=== PATIENT | female | born 1955 | race Caucasian/White ===

== ENCOUNTER → 2016-08-27 | Emergency (ER) | payer BC ==
[2016-08-27] VITALS (9 sets, daily range): BP systolic 136–166; BP diastolic 74–98; PULSE 75–107; RESP 14–20; TEMP 97.7–98.7; O2SAT 94–100
[~2016-08-27] VITALS: Ht 165.1 cm; Wt 105.0 kg
[~2016-08-27] MED LIST: *MEPERIDINE 25 MG INJ VIAL PERIprocedural Use ONLY ONE; ACET-703 PO; ACETAMINOPHEN/HYDROcodone 325 MG/5 MG TAB PO ONE; ASPI1TAB69 PO; ASPI81TA82 PO; BELLADONNA ALKALOIDS/OPIUM 60 MG SUPP ONE; CALC1TAB12 PO; CHLORHEXIDINE GLUCONATE 0.12% 30 ML CUP ONE; CIPR-9 PO; CIPR500T2 PO; CRANCAP2 PO; CYAN25003 SL; FAMOTIDINE 20 MG/2 ML VIAL ONE; HYDR-3533 PO; IOHEXOL 350 MG/ML 100 ML BTL (for RAD DIAG) OTHER ONE; KETO0.5S2 EACH EYE; KETO0.5S2 LEFT EYE; KETO0.5S2 RIGHT EYE; KETOROLAC TROMETHAMINE 30 MG/ML (IVP) VIAL IVP ONE; LEVA500T PO; METH750T2 PO; MIDAZOLAM HCL 2 MG/2 ML VIAL ONE; MORPHINE SULFATE 4 MG/ML INJ IV PUSH ONE; NAPR500 PO; OMEP20CA5 PO; OMEP20TA PO; OMNI1SUS LEFT EYE; ONDANSETRON HCL 4 MG/2 ML VIAL IV ONE; ONDANSETRON HCL 4 MG/2 ML VIAL IVP ONE; OXYB5TAB10 PO; PHEN0.4T PO; PROMETHAZINE INJ 25 MG/ML VIAL ONE; PROPOFOL 200 MG/20 ML AMP IV ONE; SODIUM CHLOR 0.9% 1000 ML INJ 1,000 ML IV SCH; SODIUM CHLORIDE 0.9% FLUSH 10 ML FLUSH IV FLUSH PRN; SODIUM CHLORIDE 0.9% INJ 100 ML ONE; SODIUM CHLORIDE 0.9% INJ 50 ML ONE; TRAM50TA PO; VITA10002 PO; ZOFR4TAB PO; ZOFR4TAB3 SL; [UNRECOGNIZED DRUG - REMARK] PO; ceFAZolin INJ 1,000 MG VIAL ONE
[2016-08-27 08:04] LABS: AUTOMATED NEUTROPHIL # 8.3 TH/MM3 (1.8-7.7); BASOPHIL # 0.1 TH/MM3 (0-0.2); BASOPHIL % 0.7 % (0.0-2.0); EOSINOPHIL # 0.2 TH/MM3 (0-0.4); EOSINOPHIL % 1.4 % (0.0-4.0); HEMATOCRIT 45.2 % (35.0-46.0); HEMO FLAGS DIFF FINAL; LYMPH % 14.9 % (9.0-44.0); LYMPHOCYTE # 1.6 TH/MM3 (1.0-4.8); MEAN CELL VOLUME 85.1 FL (80.0-100.0); MEAN CORPUSCULAR HEMOGLOBIN 28.1 PG (27.0-34.0); MEAN CORPUSCULAR HGB CONC 33.1 % (32.0-36.0); MONO % 5.9 % (0.0-8.0); NEUT % 77.1 % (16.0-70.0); PLATELET COUNT 251 TH/MM3 (150-450); RED BLOOD COUNT 5.31 MIL/MM3 (4.00-5.30); RED CELL DISTRIBUTION WIDTH 12.9 % (11.6-17.2); WHITE BLOOD COUNT 10.8 TH/MM3 (4.0-11.0)
[2016-08-27 08:13] LABS: CHLORIDE 109 MEQ/L (98-107); POTASSIUM 3.9 MEQ/L (3.5-5.1); SODIUM (NA) 144 MEQ/L (136-145)
[2016-08-27 08:17] LABS: ANION GAP 11 MEQ/L (5-15); BLOOD UREA NITROGEN 18 MG/DL (7-18)
[2016-08-27 08:20] LABS: ALT (GPT) 42 U/L (10-53); AST (GOT) 27 U/L (15-37); GLOMERULAR FILTRATION RATE 50 ML/MIN (>89)
[2016-08-27 08:22] LABS: TOTAL BILIRUBIN ADULT 0.7 MG/DL (0.2-1.0)
[2016-08-27 08:23] LABS: ALKALINE PHOSPHATASE 121 U/L (45-117)
--- NOTE | 2016-08-27 08:33 | PD ---
HPI Chief Complaint: Flank/Kidney Pain Time Seen by Provider: 07:21 Travel History International Travel<30 days: No Contact w/Intl Traveler<30days: No Traveled to known affect area: No History of Present Illness HPI 60 year-old woman presents emergency department complaining of left flank pain and vomiting starting today. She's had urgency and frequency for the past 5 days or so. This morning about 3 inches or develop severe left flank pain associated with vomiting. She has a remote history of kidney stones in the past and states it feels somewhat similar. She's had chills but no definite fevers. She otherwise had been feeling generally well and healthy before the onset of these symptoms. Review of systems is positive for some left leg pain that she's been having. She had an ultrasound done yesterday that was negative for DVT. Think she may have a Mir cyst. She also has chronic diarrhea. No other recent illness or injury. Abdominal surgical history includes cholecystectomy, vaginal hysterectomy, bilateral tubal ligation, and bladder surgery. History Past Medical History Narrative Medical Hyperlipidemia Hiatal hernia Psoriasis GERD Esophageal spasms Menopausal: Yes Social History Alcohol Use: No Tobacco Use: No (FORMER) Allergies-Medications (Allergen,Severity, Reaction): Coded Allergies: Sulfa (Verified Allergy, Severe, HIVES, 08/27/16) Reported Meds & Prescriptions Reported Meds & Active Scripts Active Naprosyn (Naproxen) 500 Mg Tab 500 Mg PO BID PRN Zofran Odt (Ondansetron Odt) 4 Mg Tab 4 Mg SL Q8HR PRN May substitute non-ODT form. Lortab (Hydrocodone-Acetaminophen) 5-325 Mg Tab 1-2 Tab PO Q6H PRN Reported Vitamin B-12 (Cyanocobalamin) 2,500 Mcg Subl 2,500 Mcg SL DAILY Omnipred Opth Drops (Prednisolone Acetate Opth Drops) 1% Susp 1 Drop EACH EYE BID Ketorolac Opth Drops 0.5% Drops 1 Drop EACH EYE DAILY Calcium 500 +D (Calcium Carbonate-Cholecalciferol) 500-400 Mg-Unit Tab 1 Tab PO DAILY Cranberry Urinary Comfort (Vitamins C & E) 1 Cap 2 Cap PO DAILY Omeprazole 20 Mg Tab 20 Mg PO DAILY Ciprofloxacin (Ciprofloxacin HCl) 500 Mg Tab 500 Mg PO BID Aspirin 81 Mg Tabdr 81 Mg PO DAILY Review of Systems Except as stated in HPI: all other systems reviewed are Neg Physical Exam Narrative GENERAL: 61 year-old woman, appears uncomfortable, nontoxic. SKIN: Warm and dry. NECK: Trachea midline. No JVD. CARDIOVASCULAR: Regular rate and rhythm. No murmur appreciated. RESPIRATORY: No accessory muscle use. Clear to auscultation. Breath sounds equal bilaterally. GASTROINTESTINAL: Abdomen is obese and soft. Moderate left-sided tenderness palpation. MUSCULOSKELETAL: No obvious deformities. No edema. NEUROLOGICAL: Awake and alert. No obvious cranial nerve deficits. Motor grossly within normal limits. Normal speech. PSYCHIATRIC: Appropriate mood and affect; insight and judgment normal. Data Data Last Documented VS Vital Signs Date Time Temp Pulse Resp B/P Pulse Ox O2 Delivery O2 Flow Rate FiO2 08/27/16 10:45 97 16 153/96 94 Room Air 08/27/16 08:15 2 08/27/16 06:21 98.7 Orders Complete Blood Count With Diff (08/27/16 07:31) Comprehensive Metabolic Panel (08/27/16 07:31) Lipase (08/27/16 07:31) Urinalysis - C+S If Indicated (08/27/16 07:31) Ct Abd/Pel W/O Iv Contrast (08/27/16 07:31) Iv Access Insert/Monitor (08/27/16 07:31) Ecg Monitoring (08/27/16 07:31) Oximetry (08/27/16 07:31) Morphine Inj (Morphine Inj) (08/27/16 07:45) Ondansetron Inj (Zofran Inj) (08/27/16 07:45) Sodium Chlor 0.9% 1000 Ml Inj (Ns 1000 M (08/27/16 07:31) Sodium Chloride 0.9% Flush (Ns Flush) (08/27/16 07:45) Ketorolac Inj (Toradol Inj) (08/27/16 07:45) Acetamin-Hydrocod 325-5 Mg ([place] 5-325 (08/27/16 08:30) Sodium Chlor 0.9% 1000 Ml Inj (Ns 1000 M (08/27/16 09:15) Morphine Inj (Morphine Inj) (08/27/16 09:45) Ondansetron Inj (Zofran Inj) (08/27/16 09:45) NPO (08/27/16 10:04) Diet Npo Except Meds (08/27/16 Lunch) ^ Consent (08/27/16 10:04) Electrocardiogram (08/27/16 11:34) Labs Laboratory Tests Test 08/27/16 07:20 White Blood Count 10.8 TH/MM3 Red Blood Count 5.31 MIL/MM3 Hemoglobin 14.9 GM/DL Hematocrit 45.2 % Mean Corpuscular Volume 85.1 FL Mean Corpuscular Hemoglobin 28.1 PG Mean Corpuscular Hemoglobin 33.1 % Concent Red Cell Distribution Width 12.9 % Platelet Count 251 TH/MM3 Mean Platelet Volume 8.8 FL Neutrophils (%) (Auto) 77.1 % Lymphocytes (%) (Auto) 14.9 % Monocytes (%) (Auto) 5.9 % Eosinophils (%) (Auto) 1.4 % Basophils (%) (Auto) 0.7 % Neutrophils # (Auto) 8.3 TH/MM3 Lymphocytes # (Auto) 1.6 TH/MM3 Monocytes # (Auto) 0.6 TH/MM3 Eosinophils # (Auto) 0.2 TH/MM3 Basophils # (Auto) 0.1 TH/MM3 CBC Comment DIFF FINAL Differential Comment Sodium Level 144 MEQ/L Potassium Level 3.9 MEQ/L Chloride Level 109 MEQ/L Carbon Dioxide Level 24.0 MEQ/L Anion Gap 11 MEQ/L Blood Urea Nitrogen 18 MG/DL Creatinine 1.10 MG/DL Estimat Glomerular Filtration 50 ML/MIN Rate Random Glucose 143 MG/DL Calcium Level 9.4 MG/DL Total Bilirubin 0.7 MG/DL Aspartate Amino Transf 27 U/L (AST/SGOT) Alanine Aminotransferase 42 U/L (ALT/SGPT) Alkaline Phosphatase 121 U/L Total Protein 7.9 GM/DL Albumin 3.7 GM/DL Lipase 106 U/L [facility] Medical Decision Making Medical Screen Exam Complete: Yes Emergency Medical Condition: Yes Interpretation(s) LABS: CBC unremarkable. CMP generally unremarkable. Lipase normal. CT abdomen and pelvis: Acute obstructive uropathy in the left proximal ureter secondary to 9 mm calcified calculus at the left UPJ resulting in mild to moderate hydronephrosis. Tiny 3 mm calcified nonobstructing right renal calculus. Uncommon to colonic diverticulosis. Mild degenerative changes of the lumbar spine. Degenerative changes swelling the symphysis pubis. Mild hepatomegaly. Differential Diagnosis Renal lithiasis, UTI, pyelonephritis, colitis or diverticulitis, AAA, other Narrative Course Medical decision making INITIAL: Is a 60 year-old woman presents to the emergency department complaining of left flank pain with vomiting suggestive of renal lithiasis. We' ll check labs, UA, CT, pain control, reassess. FINAL: Patient with 9 mm proximal stone in the UPJ, needs stent. Spoke with Dr. Ennis, they will be able to do stent. [place]. Patient will be discharged from recovery. Diagnosis Primary Impression: Renal lithiasis Referrals: Pablito Ennis DO 1 week Additional Instructions: Take Naprosyn and Lortab as needed for pain. Use Zofran as needed for nausea or vomiting. Follow-up with Dr. Ennis as planned. Return to the emergency department for any new or worsening symptoms. Med/Other Pt SpecificInfo: Prescription(s) given Scripts Naproxen (Naprosyn)500 Mg [id number] Mg PO BID PRN (PAIN SCALE 1 TO 10) #20 TAB Prov:Cruz Shelby MD 08/27/16 Ondansetron Odt (Zofran Odt)4 Mg Tab4 Mg SL Q8HR PRN (Nausea/Vomiting) #15 TAB May substitute non-ODT form. Prov:Cruz Shelby MD 08/27/16 Hydrocodone-Acetaminophen (Lortab)5-325 Mg Tab1-2 Tab PO Q6H PRN (PAIN) #12 TAB Prov:Cruz Shelby MD 08/27/16 Disposition: 01 DISCHARGE HOME Condition: Stable Cruz Shelby MD Aug 27, 2016 08:33
--- NOTE | 2016-08-27 08:34 | RADHPO ---
EXAM DATE/TIME: 08/27/2016 07:51 [place] COMPARISON: No previous studies available for comparison. INDICATIONS : Left flank pain. Vomiting. ORAL CONTRAST: No oral contrast ingested. RADIATION DOSE: 24.78 CTDIvol (mGy) MEDICAL HISTORY : Renal calculi. Gastroesophageal reflux disease. Cardiovascular disease SURGICAL HISTORY : Hysterectomy. Tubal ligation. ENCOUNTER: Initial ACUITY: 1 day PAIN SCALE: 8/10 LOCATION: Left flank TECHNIQUE: Volumetric scanning of the abdomen and pelvis was performed. Using automated exposure control and ad justment of the mA and/or kV according to patient size, radiation dose was kept as low as reasonably achievable to obtain optimal diagnostic quality images. FINDINGS: There is evidence of acute obstructive uropathy of the left proximal ureter secondary to a 9 mm calci fied calculus at the ureteropelvic junction resulting in mild to moderate hydronephrosis on the left. There is a t iny 3 mm calcified non-obstructing right renal calculus. Circumaortic renal vein is noted. Uncomplicated col onic diverticulosis is noted. No acute diverticulitis is noted. Evaluation of the solid organs of the ab domen is limited by the lack of intravenous contrast. The appendix is normal. Mild hepatomegaly is noted. The patie nt is status post cholecystectomy. Minimal degenerative changes are noted throughout the lumbar spine. Arthritic changes are noted involving the symphysis pubis. The visualized lung bases are clear. CONCLUSION: 1. Acute obstructive uropathy in the left proximal ureter secondary to a 9 mm calcified calculus at the left ureteropelvic junction resulting in mild to moderate hydronephrosis on the left. 2. Tiny 3 mm calcified non-obstructing right renal calculus. 3. Uncomplicated colonic diverticulosis. 4. Mild degenerative changes throughout the lumbar spine. 5. Degenerative changes involving the symphysis pubis. 6. Mild hepatomegaly. Herminio Soto MD on August 27, 2016 at 8:14 Board Certified Radiologist. This report was verified electronically.
--- NOTE | 2016-08-27 14:24 | MB ---
cc: CT MAIER DATE OF CONSULTATION: 08/27/2016 REASON FOR CONSULTATION: Miss Michaels is a 58-year-old female who presented to the emergency room at [place] with left-sided flank pain associated with nausea and vomiting. A CT scan in emergency room demonstrated 9 mm left proximal ureteral stone with hydronephrosis. She states that she has had stones in the past. She denies any fever or chills. ALLERGIES SULFA MEDICATIONS: For medications please refer to the chart. PAST MEDICAL HISTORY: Medical history includes nephrolithiasis. PAST SURGICAL HISTORY: 1. Noted for right total knee replacement 2. hysterectomy 3. bladder surgery for urinary incontinence. 4. Hyperlipidemia. MEDICAL HISTORY 1. Please include hyperlipidemia. 2. Hiatal hernia 3. Gastroesophageal reflux disease 4. Psoriasis. FAMILY HISTORY: Family history is noted as history of stones. SOCIAL HISTORY Notes a former smoker. REVIEW OF SYSTEMS All systems are negative except per the HPI. PHYSICAL EXAMINATION: VITAL SIGNS: She is afebrile. Vital signs are stable. IN GENERAL: Well-developed, obese 60-year-old female no acute distress. HEAD, EYES, EARS, NOSE, AND THROAT: Normocephalic, atraumatic. Pupils equal round react to light. Extraocular is intact. NECK: The neck is supple. HEART: Regular rate and rhythm. LUNGS: Clear. ABDOMEN: Soft. Nontender. Nondistended. BACK: There is left costovertebral angle tenderness noted. EXTREMITIES: Show no cyanosis or edema. LABORATORY DATA White count 10.8, hemoglobin 14.9, hematocrit 45.2, platelet count 251, sodium 144, potassium 3.9, chloride 109, CO2 24, BUN of 18, creatinine 1.1, glucose 143. CT scan shows a 9 mm proximal UPJ stone with hydronephrosis. ASSESSMENT 61-year-old female with A 9 mm proximal left ureteral stone with hydronephrosis. PLAN: The plan will be for cystoscopy left double-J stent insertion followed by extracorporeal shock wave lithotripsy. Ct [place]/ /2:08 PM /2:13 PM
--- NOTE | 2016-08-28 16:23 | EKG ---
Date Performed: 08/27/2016 Time Performed: 11:46:30 PTAGE: 61 years EKG: Sinus rhythm Low QRS voltages in precordial leads Since previous tracing, no significant change noted Borderline ECG PREVIOUS TRACING : 04/27/2013 07.22 DOCTOR: Tony Smiley Interpretating Date/Time 08/28/2016 16:22:42
--- NOTE | 2016-08-31 12:19 | MP ---
cc: CT [facility] DATE OF SURGERY 08/27/2016 PREOPERATIVE DIAGNOSIS 9-mm left UPJ stone with hydronephrosis. POSTOPERATIVE DIAGNOSIS 9-mm left UPJ stone with hydronephrosis. PROCEDURE Cystoscopy, left retrograde study, left double-J stent insertion. SURGEON MD Raymon ANESTHESIA General LMA. FLUIDS 500 cc crystalloid. ESTIMATED BLOOD LOSS No blood loss. COMPLICATIONS No complications. DRAINS A 6-Frenchm, 22-cm left double-J stent. DISPOSITION She tolerated the procedure well and was transferred to Recovery in stable condition. INDICATIONS Sharyn Michaels is a 61-year-old female who presented with nausea, vomiting and abdominal pain on the left side with flank pain over the last [address] scan in the emergency room at [facility] demonstrated a 9-mm left proximal ureteral stone. Hydronephrosis was also noted. Decision was made to bring the patient to the operating room to undergo cystoscopy with left double-J stent insertion. The risks and benefits were discussed preoperatively and she was willing to proceed. PROCEDURE The patient was brought to the operating room, identified by myself as Sharyn Michaels. She was placed in dorsal lithotomy position, prepped and draped in the sterile fashion, received preprocedure antibiotics, and general LMA anesthesia was administered. A 22-Cymraes cystoscope was inserted into the bladder. Elder cystoscopy did not reveal any abnormalities. A 5-Cymraes open-ended catheter was then inserted into the left ureteral orifice and retrograde study was performed showing good filling of the ureter up to the UPJ where the stone was identified and was pushed back into the kidney. An 0.035 Sensor wire was then passed through the open-ended catheter leaving the wire in place and removing the catheter. A 6-Cymraes 22-cm left double-J stent was inserted over the wire with a good curl in the kidney and a good curl in the bladder. The bladder was evacuated and she was awoken and transferred to her room in stable condition. The plan will be for her to make a phone call to the office on Tuesday and schedule left extracorporeal shock wave lithotripsy in the near future. Ct TOSCANO/ANNALEE /2:04 PM /12:13 PM
== END | disposition home or self-care (01) ==
LOC: EDSEX → PHED 06:17
DX: N13.2 Hydronephrosis with renal and ureteral calculous obstruction (principal); R94.31 Abnormal electrocardiogram [ECG] [EKG]; Z88.2 Allergy status to sulfonamides
CPT/HCPCS: 00910; 52332; 74176; 76000; 80053; 83690; 85025; 93005; 96361; 96374; 96375; 96376; 99284; C1769; C2617; J0690; J1885; J2175; J2250; J2270; J2405; J2550; J3010; J7030; Q9967

== ENCOUNTER 2016-08-28 15:27 | Observation (INO) | payer BC ==
[~2016-08-28] VITALS: Ht 165.1 cm; Wt 106.4 kg
[2016-08-28] VITALS (8 sets, daily range): BP systolic 119–165; BP diastolic 70–101; PULSE 87–121; RESP 16–20; TEMP 98.7–100.2; O2SAT 91–95
[~2016-08-28 15:27] MED LIST changes: -*MEPERIDINE 25 MG INJ VIAL PERIprocedural Use ONLY ONE; -ACET-703 PO; -ACETAMINOPHEN/HYDROcodone 325 MG/5 MG TAB PO ONE; -ASPI81TA82 PO; -BELLADONNA ALKALOIDS/OPIUM 60 MG SUPP ONE; -CHLORHEXIDINE GLUCONATE 0.12% 30 ML CUP ONE; -CIPR-9 PO; -FAMOTIDINE 20 MG/2 ML VIAL ONE; -IOHEXOL 350 MG/ML 100 ML BTL (for RAD DIAG) OTHER ONE; -KETO0.5S2 LEFT EYE; -KETO0.5S2 RIGHT EYE; -KETOROLAC TROMETHAMINE 30 MG/ML (IVP) VIAL IVP ONE; -METH750T2 PO; -MIDAZOLAM HCL 2 MG/2 ML VIAL ONE; -MORPHINE SULFATE 4 MG/ML INJ IV PUSH ONE; -OMEP20CA5 PO; -ONDANSETRON HCL 4 MG/2 ML VIAL IV ONE; -ONDANSETRON HCL 4 MG/2 ML VIAL IVP ONE; -OXYB5TAB10 PO; -PROMETHAZINE INJ 25 MG/ML VIAL ONE; -PROPOFOL 200 MG/20 ML AMP IV ONE; -SODIUM CHLOR 0.9% 1000 ML INJ 1,000 ML IV SCH; -SODIUM CHLORIDE 0.9% FLUSH 10 ML FLUSH IV FLUSH PRN; -SODIUM CHLORIDE 0.9% INJ 100 ML ONE; -SODIUM CHLORIDE 0.9% INJ 50 ML ONE; -TRAM50TA PO; -VITA10002 PO; -[UNRECOGNIZED DRUG - REMARK] PO; -ceFAZolin INJ 1,000 MG VIAL ONE
[2016-08-28] MEDS ORDERED: SODIUM CHLOR 0.9% 1000 ML INJ 1,000 ML IV ONE (16:23)
--- NOTE | 2016-08-28 16:29 | PD ---
HPI Chief Complaint: Headache Time Seen by Provider: 16:23 Travel History International Travel<30 days: No Contact w/Intl Traveler<30days: No Traveled to known affect area: No History of Present Illness HPI 61-year-old female with diagnosis of 9 mm kidney stone yesterday status post stenting done by urology, released with Levaquin, Pyridium, and pain medications , back to the ER today because of headaches that started yesterday, currently an 8 out of 10 with photophobia. She states that she has history of headaches and migraine headaches but states is usually not this bad. She has been nauseous but denies any vomiting, fevers, or other symptoms. Modifying Factors: None Associated Signs & Symptoms: Headaches, nausea Risk Factors: Previous history of migraine headaches, kidney stone and stenting done yesterday PFSH Past Medical History Arthritis: Yes Cancer: No Cardiovascular Problems: Yes (tachycardia) High Cholesterol: Yes Diabetes: No Endocrine: No Gastrointestinal Disorders: Yes (reflux esophageal spasms) GERD: Yes Genitourinary: No Hepatitis: No Hiatal Hernia: No Hypertension: No Immune Disorder: Yes (psorisis) Implanted Vascular Access Dvce: No Kidney Stones: Yes Musculoskeletal: Yes (bursitis in both hips psoriatic arhritis ) Neurologic: No Psychiatric: No Respiratory: No Integumentary: Yes (PSORIASIS) Immunizations Current: Yes Thyroid Disease: No Ulcer: Yes ?: Not Menopausal: Yes Tubal Ligation: Yes Past Surgical History Abdominal Surgery: Yes (liver bx) AICD: No Eye Surgery: Yes (john, August,) Genitourinary Surgery: Yes (mmk, URETERAL STENT) Gynecologic Surgery: Yes (vaginal hysterectomy tubal) Hysterectomy: Yes Joint Replacement: Yes (right knee) Oral Surgery: Yes (full upper dental ext) Pacemaker: No Other Surgery: Yes (VULVAR BIOPSY-- LICHEN SCLEROSIS) Social History Alcohol Use: No Tobacco Use: No (FORMER) Substance Use: No Allergies-Medications (Allergen,Severity, Reaction): Coded Allergies: Sulfa (Verified Allergy, Severe, HIVES, 08/28/16) Reported Meds & Prescriptions Reported Meds & Active Scripts Active Naprosyn (Naproxen) 500 Mg Tab 500 Mg PO BID PRN Reported Zofran (Ondansetron HCl) 4 Mg Tab 4 Mg PO Q6HR PRN Pyridium (Phenazopyridine HCl) 100 Mg Tab 100 Mg PO BID PRN Lortab (Hydrocodone-Acetaminophen) 5-325 Mg Tab 1 Tab PO Q6H PRN Levaquin (Levofloxacin) 500 Mg Tab 500 Mg PO DAILY 5 Days Vitamin B-12 (Cyanocobalamin) 2,500 Mcg Subl 2,500 Mcg SL DAILY Omnipred Opth Drops (Prednisolone Acetate Opth Drops) 1% Susp 1 Drop EACH EYE BID Calcium 500 +D (Calcium Carbonate-Cholecalciferol) 500-400 Mg-Unit Tab 1 Tab PO DAILY Cranberry Urinary Comfort (Vitamins C & E) 1 Cap 2 Cap PO DAILY Omeprazole 20 Mg Tab 20 Mg PO DAILY Ciprofloxacin (Ciprofloxacin HCl) 500 Mg Tab 500 Mg PO BID Aspirin 81 Mg Tabdr 81 Mg PO DAILY Review of Systems Except as stated in HPI: all other systems reviewed are Neg Physical Exam Narrative GENERAL: Elderly white female patient currently in moderate distress. Awake and oriented 3. SKIN: Warm and dry. HEAD: Atraumatic. Normocephalic. EYES: Pupils equal and round. No scleral icterus. No injection or drainage. Pupils are equal, round, react to light bilaterally. ENT: No nasal bleeding or discharge. Mucous membranes pink and moist. NECK: Trachea midline. No JVD. CARDIOVASCULAR: Regular rate and rhythm. No murmur appreciated. RESPIRATORY: No accessory muscle use. Clear to auscultation. Breath sounds equal bilaterally. GASTROINTESTINAL: Abdomen soft, non-tender, nondistended. Hepatic and splenic margins not palpable. MUSCULOSKELETAL: No obvious deformities. No clubbing. No cyanosis. No edema. NEUROLOGICAL: Awake and alert. No obvious cranial nerve deficits. Motor grossly within normal limits. Normal speech. PSYCHIATRIC: Appropriate mood and affect; insight and judgment normal. Data Data Last Documented VS Vital Signs Date Time Temp Pulse Resp B/P Pulse Ox O2 Delivery O2 Flow Rate FiO2 08/28/16 17:36 111 20 165/82 91 08/28/16 16:57 Room Air 08/28/16 15:45 100.2 Orders Complete Blood Count With Diff (08/28/16 16:23) Comprehensive Metabolic Panel (08/28/16 16:23) Ecg Monitoring (08/28/16 16:23) Iv Access Insert/Monitor (08/28/16 16:23) Oximetry (08/28/16 16:23) Sodium Chloride 0.9% Flush (Ns Flush) (08/28/16 16:30) Ondansetron Inj (Zofran Inj) (08/28/16 16:30) Hydromorphone Pf Inj (Dilaudid Pf Inj) (08/28/16 16:30) Sodium Chlor 0.9% 1000 Ml Inj (Ns 1000 M (08/28/16 16:23) Urinalysis - C+S If Indicated (08/28/16 16:23) Urine Culture (08/28/16 16:30) Blood Culture (08/28/16 17:32) Lactic Acid Sepsis Protocol (08/28/16 17:32) Piperacil-Tazo 4.5 Gm Premix (Zosyn 4.5 (08/28/16 17:32) Labs Laboratory Tests Test 08/28/16 16:30 White Blood Count 7.3 TH/MM3 Red Blood Count 4.72 MIL/MM3 Hemoglobin 13.3 GM/DL Hematocrit 40.3 % Mean Corpuscular Volume 85.4 FL Mean Corpuscular Hemoglobin 28.1 PG Mean Corpuscular Hemoglobin 33.0 % Concent Red Cell Distribution Width 13.1 % Platelet Count 209 TH/MM3 Mean Platelet Volume 8.0 FL Neutrophils (%) (Auto) 77.2 % Lymphocytes (%) (Auto) 11.8 % Monocytes (%) (Auto) 7.7 % Eosinophils (%) (Auto) 1.5 % Basophils (%) (Auto) 1.8 % Neutrophils # (Auto) 5.6 TH/MM3 Lymphocytes # (Auto) 0.9 TH/MM3 Monocytes # (Auto) 0.6 TH/MM3 Eosinophils # (Auto) 0.1 TH/MM3 Basophils # (Auto) 0.1 TH/MM3 CBC Comment DIFF FINAL Differential Comment Urine Collection Type CLEAN CATCH Urine Color YELLOW Urine Turbidity SLIGHT Urine pH 6.0 Urine Specific [place] 1.007 Urine Protein 100 mg/dL Urine Glucose (UA) NEG mg/dL Urine Ketones NEG mg/dL Urine Occult Blood LARGE Urine Nitrite POS Urine Bilirubin NEG Urine Leukocyte Esterase MOD Urine RBC INNUM /hpf Urine WBC 25-49 /hpf Urine Squamous Epithelial 0-5 /hpf Cells Microscopic Urinalysis Comment CULTURE INDICATED Urine Collection Time 16:30 Sodium Level 140 MEQ/L Potassium Level 3.9 MEQ/L Chloride Level 107 MEQ/L Carbon Dioxide Level 25.4 MEQ/L Anion Gap 8 MEQ/L Blood Urea Nitrogen 9 MG/DL Creatinine 0.94 MG/DL Estimat Glomerular Filtration 60 ML/MIN Rate Random Glucose 108 MG/DL Calcium Level 8.7 MG/DL Total Bilirubin 1.0 MG/DL Aspartate Amino Transf 58 U/L (AST/SGOT) Alanine Aminotransferase 54 U/L (ALT/SGPT) Alkaline Phosphatase 121 U/L Total Protein 7.2 GM/DL Albumin 3.2 GM/DL MDM Medical Decision Making Medical Screen Exam Complete: Yes Emergency Medical Condition: Yes Medical Record Reviewed: Yes Interpretation(s) Laboratory Tests Test 08/28/16 16:30 Neutrophils (%) (Auto) 77.2 % (16.0-70.0) Lymphocytes # (Auto) 0.9 TH/MM3 (1.0-4.8) Urine Protein 100 mg/dL (NEG-TRACE) Urine Occult Blood LARGE (NEG) Urine Nitrite POS (NEG) Urine Leukocyte Esterase MOD (NEG) Urine RBC INNUM /hpf (0-3) Urine WBC 25-49 /hpf (0-5) Estimat Glomerular Filtration 60 ML/MIN (>89) Rate Random Glucose 108 MG/DL (74-106) Aspartate Amino Transf 58 U/L (15-37) (AST/SGOT) Alanine Aminotransferase 54 U/L (10-53) (ALT/SGPT) Alkaline Phosphatase 121 U/L (45-117) Albumin 3.2 GM/DL (3.4-5.0) Differential Diagnosis Headachemigraine headaches versus sepsis versus dehydration versus metabolic issues Narrative Course She is tachycardic and has low-grade fever. IV fluids and pain medication nausea medication was given to her in the ER. Lab work shows significant UTI which I suspect may be causing her headache. IV antibiotics were initiated in the ER. At this point, patient has been on Levaquin for several days as well as Cipro which does not appear to be helping with a UTI. My plan would be to admit the patient as an observation for resistant UTI, sepsis. Case is discussed with Dr. Rico for admission. Sepsis Criteria SIRS Criteria (2 or more): Heart rate over 90 Sepsis Criteria (SIRS+source): Infect source susp/known Diagnosis Primary Impression: UTI (urinary tract infection) Additional Impression: Sepsis Admitting Information Admitting Physician Requests: Admit Radha Bay MD Aug 28, 2016 16:29
[2016-08-28] MEDS ORDERED: HYDROmorphone HCL PF 1 MG/ML VIAL IVS ONE (16:30)
[2016-08-28] MEDS ORDERED: ONDANSETRON HCL 4 MG/2 ML VIAL IVP ONE (16:30)
[2016-08-28] MEDS ORDERED: SODIUM CHLORIDE 0.9% FLUSH 10 ML FLUSH IVF PRN (16:30)
[2016-08-28 16:40] LABS: BLOOD, URINE LARGE (NEG); GLUCOSE,URINE NEG (NEG); KETONE, URINE NEG (NEG)
[2016-08-28 16:41] LABS: AUTOMATED NEUTROPHIL # 5.6 TH/MM3 (1.8-7.7); BASOPHIL # 0.1 TH/MM3 (0-0.2); BASOPHIL % 1.8 % (0.0-2.0); EOSINOPHIL # 0.1 TH/MM3 (0-0.4); EOSINOPHIL % 1.5 % (0.0-4.0); HEMATOCRIT 40.3 % (35.0-46.0); HEMO FLAGS DIFF FINAL; LYMPH % 11.8 % (9.0-44.0); LYMPHOCYTE # 0.9 TH/MM3 (1.0-4.8); MEAN CELL VOLUME 85.4 FL (80.0-100.0); MEAN CORPUSCULAR HEMOGLOBIN 28.1 PG (27.0-34.0); MONO % 7.7 % (0.0-8.0); NEUT % 77.2 % (16.0-70.0); PLATELET COUNT 209 TH/MM3 (150-450); RED BLOOD COUNT 4.72 MIL/MM3 (4.00-5.30); RED CELL DISTRIBUTION WIDTH 13.1 % (11.6-17.2); WHITE BLOOD COUNT 7.3 TH/MM3 (4.0-11.0)
[2016-08-28 16:43] LABS: NITRITE,URINE POS (NEG)
[2016-08-28 16:44] LABS: METHOD OF COLLECTION CLEAN CATCH; URINE COLOR YELLOW (YELLW/STRAW)
[2016-08-28 16:45] LABS: COMMENT (UR) CULTURE INDICATED; CULTURE IF INDICATED CULTURE INDICATED; RBC, URINE INNUM /hpf (0-3); SQUAMOUS EPITHELIAL CELL URINE 0-5 /hpf (0-5)
[2016-08-28 16:54] LABS: CHLORIDE 107 MEQ/L (98-107); POTASSIUM 3.9 MEQ/L (3.5-5.1); SODIUM (NA) 140 MEQ/L (136-145)
[2016-08-28 16:58] LABS: ANION GAP 8 MEQ/L (5-15); BICARBONATE 25.4 MEQ/L (21.0-32.0); BLOOD UREA NITROGEN 9 MG/DL (7-18)
[2016-08-28 17:01] LABS: ALT (GPT) 54 U/L (10-53)
[2016-08-28 17:05] LABS: ALKALINE PHOSPHATASE 121 U/L (45-117); AST (GOT) 58 U/L (15-37); GLOMERULAR FILTRATION RATE 60 ML/MIN (>89)
[2016-08-28] MEDS ORDERED: PIPERACIL-TAZO 4.5 GM PREMIX 100 ML IV STA (17:32)
[2016-08-28] MEDS ORDERED: ACETAMINOPHEN/HYDROcodone 325 MG/5 MG TAB PO PRN (17:45)
[2016-08-28] MEDS ORDERED: ACETAMINOPHEN/HYDROcodone 325 MG/7.5 MG TAB PO PRN (17:45)
[2016-08-28] MEDS ORDERED: SODIUM CHLORIDE 0.9% FLUSH 10 ML FLUSH IV FLUSH PRN (17:45)
[2016-08-28] MEDS ORDERED: ACETAMINOPHEN 325 MG TAB PO PRN (17:45)
[2016-08-28] MEDS ORDERED: IBUPROFEN 400 MG TAB PO PRN (17:45)
[2016-08-28] MEDS ORDERED: MAGNESIUM HYDROXIDE SUSP 30 ML CUP PO PRN (17:45)
[2016-08-28] MEDS ORDERED: ONDANSETRON HCL 4 MG/2 ML VIAL IVP PRN (17:45)
--- NOTE | 2016-08-28 18:40 | HHI.HP ---
HPI Service [facility] Hospitalists Primary Care Physician Nayely Chan MD Admission Diagnosis renal colic/UTI/sepsis/failed outpatient therapy Diagnoses: Chief Complaint: Severe headache Nausea Travel History International Travel<30 Days: No Contact w/Intl Traveler <30 Da: No Traveled to Known Affected Are: No Sepsis Criteria SIRS Criteria (2 or more): Temp > 100.9 or < 96.8, Heart rate over 90 Sepsis Criteria (SIRS+source): Infect source susp/known Criteria Outcome: Meets sepsis criteria History of Present Illness This is a 61-year-old female with a past medical history significant for sinus tachycardia, migraines, esophageal spasms, dyslipidemia, GERD and psoriasis who presents to [facility] with complaints of severe headache. Patient was just seen yesterday for a 9 mm kidney stone and underwent a ureteral stenting by urology. Patient was discharged with Levaquin, Pyridium and pain medications. Patient states that around 4:00 this morning she took a pain pill and soon after she developed a 10/10 severe headache with associated nausea. She denies any vomiting. Patient states that her headache is worse with movement as well as a light period. She states that the headache would ease up and get better but then worsen again. Patient is a migraine sufferer but reports that they're not usually this severe. Patient denies any associated fever, chills, slurred speech, vision changes, weakness, numbness/tingling, chest pain, shortness of breath or abdominal pain. She's had some mild dizziness. She does report diarrhea but states this is chronic and unchanged. She admits to burning on urination as well as hematuria with passing of clots. In the ED, patient was found to have a significantly elevated blood pressure 142 /101 and be tachycardic. White count is normal that she does have a left shift. Temperature 100.2. UA revealed large blood, positive nitrites, moderate leukocytes and 25-49 white blood cells. Presently, she states the headache has improved and is a 1-2 out of 10. Review of Systems Except as stated in HPI: all other systems reviewed are Neg (10 point review of systems completed and all pertinent negative except as stated in history of present illness) Past Family Social History Past Medical History 9 mm kidney stone Esophageal spasm Sinus tachycardia GERD Migraines Psoriasis with a history of psoriatic arthritis bilateral hips Dyslipidemia Osteoarthritis Past Surgical History Status post ureteral stenting for 9 mm kidney stone Cataract surgery one eye 3 1/2 weeks ago and the other approximately one week ago. Hysterectomy Right total knee replacement Bladder repair surgery 2 Upper dental extraction Bilateral tubal ligation Cholecystectomy Reported Medications Naprosyn (Naproxen) 500 Mg Tab 500 Mg PO BID PRN Zofran (Ondansetron HCl) 4 Mg Tab 4 Mg PO Q6HR PRN Pyridium (Phenazopyridine HCl) 100 Mg Tab 100 Mg PO BID PRN Lortab (Hydrocodone-Acetaminophen) 5-325 Mg Tab 1 Tab PO Q6H PRN Levaquin (Levofloxacin) 500 Mg Tab 500 Mg PO DAILY 5 Days Vitamin B-12 (Cyanocobalamin) 2,500 Mcg Subl 2,500 Mcg SL DAILY Omnipred Opth Drops (Prednisolone Acetate Opth Drops) 1% Susp 1 Drop EACH EYE BID Calcium 500 +D (Calcium Carbonate-Cholecalciferol) 500-400 Mg-Unit Tab 1 Tab PO DAILY Cranberry Urinary Comfort (Vitamins C & E) 1 Cap 2 Cap PO DAILY Omeprazole 20 Mg Tab 20 Mg PO DAILY Ciprofloxacin (Ciprofloxacin HCl) 500 Mg Tab 500 Mg PO BID Aspirin 81 Mg Tabdr 81 Mg PO DAILY Allergies: Coded Allergies: Sulfa (Verified Allergy, Severe, HIVES, 08/28/16) Active Ordered Medications Current Medications Medications (Trade) Dose Ordered Sig/Jorje Route Start Time Stop Time Status Last Admin Sodium Chloride 2 ml 2 ml UNSCH PRN IVF 08/28/16 16:30 (NS 1000 ml Inj) 1,000 ml @ 100 mls/hr Q10H IV 08/28/16 17:45 UNV (NS Flush) 2 ml UNSCH PRN IV FLUSH 08/28/16 17:45 UNV (NS Flush) 2 ml BID IV FLUSH 08/28/16 21:00 UNV (Tylenol) 650 mg Q4H PRN PO 08/28/16 17:45 UNV (Zofran Inj) 4 mg Q6H PRN IVP 08/28/16 17:45 UNV (Milk Of Magnesia Liq) 30 ml Q12H PRN PO 08/28/16 17:45 UNV (Motrin) 400 mg Q6H PRN PO 08/28/16 17:45 UNV (Egnar 5-325 Mg) 1 tab Q4H PRN PO 08/28/16 17:45 UNV Acetaminophen/ Hydrocodone Bitart 1 tab 1 tab Q4H PRN PO 08/28/16 17:45 UNV (Zosyn 3.375 Gm Premix) 50 ml @ 100 mls/hr Q6H IV 08/28/16 17:45 UNV Family History Hypertension, mother and brothers CVA, mother Social History Patient has remote history of tobacco use having quit 06/07/04. Previously she smoked half pack for approximately 20 years. She reports rare alcohol consumption of one drink per year during holidays were special occasions. He denies any illicit drug use. She is and lives with her . 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 Physical Exam Vital Signs Vital Signs Date Time Temp Pulse Resp B/P Pulse Ox O2 Delivery O2 Flow Rate FiO2 08/28/16 17:36 111 20 165/82 91 08/28/16 17:01 16 08/28/16 16:57 93 Room Air 08/28/16 16:57 112 18 149/84 92 Room Air 08/28/16 15:45 100.2 121 17 142/101 94 Physical Exam GENERAL: This is a well-nourished, well-developed patient. A&Ox3. Appears uncomfortable with the lights off in her room and keeping her eyes closed. SKIN: No rashes, ecchymoses or lesions. Warm and dry. HEAD: Atraumatic. Normocephalic. No temporal or scalp tenderness. EYES: Pupils equal round and reactive. Extraocular motions intact. No scleral icterus. No injection or drainage. ENT: Nose without bleeding, purulent drainage or septal hematoma. Throat without erythema, tonsillar hypertrophy or exudate. Uvula midline. Airway patent. NECK: Trachea midline. No lymphadenopathy. Supple, nontender, no meningeal signs. CARDIOVASCULAR: Regular rate and rhythm without murmurs, gallops, or rubs. RESPIRATORY: Clear to auscultation. Breath sounds equal bilaterally. No wheezes , rales, or rhonchi. GASTROINTESTINAL: Abdomen soft, non-tender, nondistended. No hepato-splenomegaly , or palpable masses. No guarding. MUSCULOSKELETAL: Extremities without clubbing, cyanosis, or edema. No joint tenderness, effusion, or edema noted. No calf tenderness. NEUROLOGICAL: Awake and alert. Cranial nerves II through XII intact. Motor and sensory grossly within normal limits. Five out of 5 muscle strength in all muscle groups. Normal speech. Laboratory Laboratory Tests Test 08/28/16 16:30 White Blood Count 7.3 Red Blood Count 4.72 Hemoglobin 13.3 Hematocrit 40.3 Mean Corpuscular Volume 85.4 Mean Corpuscular Hemoglobin 28.1 Mean Corpuscular Hemoglobin 33.0 Concent Red Cell Distribution Width 13.1 Platelet Count 209 Mean Platelet Volume 8.0 Neutrophils (%) (Auto) 77.2 Lymphocytes (%) (Auto) 11.8 Monocytes (%) (Auto) 7.7 Eosinophils (%) (Auto) 1.5 Basophils (%) (Auto) 1.8 Neutrophils # (Auto) 5.6 Lymphocytes # (Auto) 0.9 Monocytes # (Auto) 0.6 Eosinophils # (Auto) 0.1 Basophils # (Auto) 0.1 CBC Comment DIFF FINAL Differential Comment Urine Collection Type CLEAN CATCH Urine Color YELLOW Urine Turbidity SLIGHT Urine pH 6.0 Urine Specific G[place]ais 1.007 Urine Protein 100 Urine Glucose (UA) NEG Urine Ketones NEG Urine Occult Blood LARGE Urine Nitrite POS Urine Bilirubin NEG Urine Leukocyte Esterase MOD Urine RBC INNUM Urine WBC 25-49 Urine Squamous Epithelial 0-5 Cells Microscopic Urinalysis Comment CULTURE INDICATED Urine Collection Time 16:30 Sodium Level 140 Potassium Level 3.9 Chloride Level 107 Carbon Dioxide Level 25.4 Anion Gap 8 Blood Urea Nitrogen 9 Creatinine 0.94 Estimat Glomerular Filtration 60 Rate Random Glucose 108 Calcium Level 8.7 Total Bilirubin 1.0 Aspartate Amino Transf 58 (AST/SGOT) Alanine Aminotransferase 54 (ALT/SGPT) Alkaline Phosphatase 121 Total Protein 7.2 Albumin 3.2 Date/Time Procedure Status Source Growth 08/28/16 17:45 Aerobic Blood Culture Received Blood Peripheral Pending 08/28/16 17:45 Anaerobic Blood Culture Received Blood Peripheral Pending 08/28/16 16:30 Urine Culture Received Urine Clean Catch Pending Result Diagram: 08/28/16 1630 08/28/16 1630 Assessment and Plan Assessment and Plan 61-year-old female with a past medical history significant for sinus tachycardia , migraines, esophageal spasms, dyslipidemia, GERD and psoriasis who presents to [facility] with complaints of severe headache, dysuria and hematuria. Sepsis secondary to urinary tract infection with tachycardia and fever - Admit to observation - Bundle in place - Lactic acid 0.6 - IV Zosyn - IV fluids - Monitor on telemetry - Follow up on urine and blood culture results - repeat CBC om am UTI in patient with a 9 mm kidney stone who underwent ureteral stenting yesterday - IV Zosyn - Follow up on urine culture results - Consult Urology Headache in a patient with a history of migraines - Improved since first presentation in the ED - Ibuprofen when necessary - By mouth pain medications when needed Mild transaminitis - AST 58, ALT 54, alkaline phosphatase 121 - Repeat CMP in a.m. Recent cataract surgery both eyes - Resume tapering dose of steroid eyedrops GERD - Resume home dose PPI DVT prophylaxis - SCD/SAY hose Discussed with Dr. Rico Attending Statement I was not present for examination. Patient was discussed with ER physician and Rachelle Ball PA-C. Agree with above plan. Continue antibiotics. Consult Urology. Rachelle Ball Aug 28, 2016 18:39 Felton Rico MD Aug 29, 2016 07:37
[2016-08-28] MEDS: SODIUM CHLOR 0.9% 1000 ML INJ 1,000 ML IV SCH (20:02)
[2016-08-28] MEDS: SODIUM CHLORIDE 0.9% FLUSH 10 ML FLUSH IV FLUSH SCH (21:00)
[2016-08-28] MEDS: PIPERACIL-TAZO 3.375 GM PREMIX 50 ML IV SCH (23:35)
[2016-08-28] MEDS: prednisoLONE ACETATE 1% OPHT SUSP 5 ML BTL EACH EYE SCH (23:41)
[2016-08-29] VITALS: BP 158/94; PULSE 87; RESP 18; TEMP 98.6; O2SAT 92
[2016-08-29] MEDS: ACETAMINOPHEN 325 MG TAB PO PRN ×3 (01:39→13:47)
[2016-08-29] MEDS ORDERED: ACETAMINOPHEN 325 MG TAB PO PRN (02:45)
[2016-08-29 04:09] VITALS: BP 134/88; PULSE 71; RESP 20; TEMP 98; O2SAT 98
[2016-08-29] MEDS: SODIUM CHLOR 0.9% 1000 ML INJ 1,000 ML IV SCH (05:54)
[2016-08-29] MEDS: PIPERACIL-TAZO 3.375 GM PREMIX 50 ML IV SCH ×2 (05:55→12:59)
[2016-08-29 07:23] LABS: AUTOMATED NEUTROPHIL # 3.5 TH/MM3 (1.8-7.7); BASOPHIL % 0.6 % (0.0-2.0); EOSINOPHIL # 0.3 TH/MM3 (0-0.4); EOSINOPHIL % 4.4 % (0.0-4.0); HEMATOCRIT 36.8 % (35.0-46.0); HEMO FLAGS DIFF FINAL; LYMPH % 24.2 % (9.0-44.0); LYMPHOCYTE # 1.5 TH/MM3 (1.0-4.8); MEAN CELL VOLUME 86.7 FL (80.0-100.0); MEAN CORPUSCULAR HEMOGLOBIN 28.9 PG (27.0-34.0); MEAN CORPUSCULAR HGB CONC 33.3 % (32.0-36.0); MONO % 12.3 % (0.0-8.0); NEUT % 58.5 % (16.0-70.0); PLATELET COUNT 166 TH/MM3 (150-450); RED BLOOD COUNT 4.24 MIL/MM3 (4.00-5.30)
[2016-08-29 07:30] LABS: CHLORIDE 106 MEQ/L (98-107); POTASSIUM 3.3 MEQ/L (3.5-5.1); SODIUM (NA) 142 MEQ/L (136-145)
[2016-08-29 07:34] LABS: ANION GAP 8 MEQ/L (5-15); BICARBONATE 28.1 MEQ/L (21.0-32.0); BLOOD UREA NITROGEN 9 MG/DL (7-18)
[2016-08-29 07:37] LABS: ALT (GPT) 62 U/L (10-53); AST (GOT) 60 U/L (15-37); GLOMERULAR FILTRATION RATE 72 ML/MIN (>89)
[2016-08-29 07:40] LABS: ALKALINE PHOSPHATASE 115 U/L (45-117)
[2016-08-29 08:00] VITALS: BP 141/84; PULSE 82; RESP 16; TEMP 97.8; O2SAT 94
[2016-08-29] MEDS ORDERED: NS + KCL 20 MEQ INJ 1,000 ML IV SCH (08:00)
[2016-08-29] MEDS ORDERED: POTASSIUM CHLORIDE 20 MEQ CONTROLLED RELEASE TAB PO ONE (08:00)
--- NOTE | 2016-08-29 08:09 | HHI.PR ---
Subjective Remarks Follow-up patient with sepsis secondary to urinary tract infection with history of benign millimeter kidney stone and recent ureteral stenting. Patient complains of 6 out of 10 headache today. She states this is worse than it was yesterday in the ED. States this is not her normal headache. She denies any vision changes, slurred speech or weakness. She also complains of intermittent nausea without vomiting. She denies any complaints of chest pain or abdominal pain. She denies any history of recent falls. Still with complaints of dysuria. Objective Vitals Vital Signs Date Time Temp Pulse Resp B/P Pulse Ox O2 Delivery O2 Flow Rate FiO2 08/29/16 04:09 98.0 71 20 134/88 98 08/29/16 00:00 98.6 87 18 158/94 92 08/28/16 21:00 99.3 91 16 161/97 93 08/28/16 20:59 99.3 91 16 161/97 93 08/28/16 20:54 87 08/28/16 19:10 18 Room Air 08/28/16 19:10 98.7 94 18 143/78 95 Room Air 08/28/16 18:29 103 20 119/70 92 08/28/16 17:36 111 20 165/82 91 08/28/16 17:01 16 08/28/16 16:57 93 Room Air 08/28/16 16:57 112 18 149/84 92 Room Air 08/28/16 15:45 100.2 121 17 142/101 94 I/O 08/28/16 08/28/16 08/28/16 08/29/16 08/29/16 08/29/16 07:00 15:00 23:00 07:00 15:00 23:00 Intake Total 1000 ml 638 ml Balance 1000 ml 638 ml Intake IV Total 1000 ml 638 ml # Voids 3 2 Result Diagram: 08/29/16 0640 08/29/16 0640 Imaging Last [address] 08/29/16 0000 Signed Impressions: Service Date/Time: Monday, August 29, 2016 10:10 - CONCLUSION: Normal examination. Colleen Lisa MD Objective Remarks GENERAL: This is a well-nourished, well-developed patient. A&Ox3. Appears uncomfortable, holding her head requesting at the blinds be drawn in the room. SKIN: Warm and dry. HEAD: Atraumatic. Normocephalic. EYES: EOMI. CARDIOVASCULAR: Regular rate and rhythm without murmurs, gallops, or rubs. RESPIRATORY: Clear to auscultation. Breath sounds equal bilaterally. No wheezes , rales, or rhonchi. GASTROINTESTINAL: Abdomen soft, non-tender, nondistended. No hepato-splenomegaly , or palpable masses. No guarding. MUSCULOSKELETAL: Extremities without clubbing, cyanosis, or edema. No joint tenderness, effusion, or edema noted. No calf tenderness. NEUROLOGICAL: Awake and alert. Able to move all 4 extremity. No focal neurologic findings appreciated. Medications and IVs Current Medications Medications (Trade) Dose Ordered Sig/Jorje Route Start Time Stop Time Status Last Admin (NS Flush) 2 ml UNSCH PRN IV FLUSH 08/28/16 17:45 (NS Flush) 2 ml BID IV FLUSH 08/28/16 21:00 08/28/16 21:00 (Zofran Inj) 4 mg Q6H PRN IVP 08/28/16 17:45 08/28/16 20:34 (Milk Of Magnesia Liq) 30 ml Q12H PRN PO 08/28/16 17:45 (Motrin) 400 mg Q6H PRN PO 08/28/16 17:45 (Canaan 5-325 Mg) 1 tab Q4H PRN PO 08/28/16 17:45 Acetaminophen/ Hydrocodone Bitart 1 tab 1 tab Q4H PRN PO 08/28/16 17:45 (Zosyn 3.375 Gm Premix) 50 ml @ 100 mls/hr Q6HR IV 08/29/16 00:00 08/29/16 12:59 (Pred Forte 1% Opth Susp) 1 drop BID EACH EYE 08/28/16 21:00 08/29/16 08:30 (Protonix) 20 mg DAILY PO 08/29/16 09:00 08/29/16 08:30 Acetaminophen 650 mg 650 mg Q4H PRN PO 08/29/16 01:15 08/29/16 05:58 (NS + KCl 20 Meq Inj) 1,000 ml @ 100 mls/hr Q10H IV 08/29/16 08:00 08/29/16 08:31 (Acular 0.5% Opth Soln) 1 drop DAILY RIGHT EYE 08/29/16 12:00 08/29/16 12:59 (Acular 0.5% Opth Soln) 3 drop TID PRN LEFT EYE 08/29/16 11:45 08/29/16 12:59 A/P Assessment and Plan 61-year-old female with a past medical history significant for sinus tachycardia , migraines, esophageal spasms, dyslipidemia, GERD and psoriasis who presents to [facility] with complaints of severe headache, dysuria and hematuria. Sepsis secondary to urinary tract infection with tachycardia and fever - Resolving. Low-grade temp 100.2 yesterday, afebrile now. Heart rate 82 - Lactic acid 0.6 - Continue on IV Zosyn. Await urology recommendations. - Continue with IV fluids - Monitor on telemetry - Urine culture shows no growth in 24 hours. - Blood cultures show no growth in 24 hours. UTI in patient with a 9 mm kidney stone who underwent ureteral stenting yesterday - continue IV Zosyn for now - UCX shows NGTD - Consult Urology Headache in a patient with a history of migraines - worse - CT Head for further evaluation - Ibuprofen and/or Tylenol when necessary - By mouth pain medications when needed Mild transaminitis - AST 58, ALT 54, alkaline phosphatase 121 at admission. - stable Recent cataract surgery both eyes - Resume tapering dose of steroid eyedrops and Ketorolac drops GERD - continue home dose PPI DVT prophylaxis - SCD/SAY hose Written by Rachelle Ball PA-C acting as scribe for Dr. Rico on 08/29/16 at 08:08. All or portions of this note were transcribed by scribe Rachelle Ball PA-C. I, Dr. Felton Rico personally performed the history, physical exam, and medical decision making; and confirmed the accuracy of the information in the transcribed note. Authenticated by Dr. Felton Rico on 08/29/16 at 13:36. Rachelle Ball Aug 29, 2016 08:09 Felton Rico MD Aug 29, 2016 13:37
[2016-08-29] MEDS: prednisoLONE ACETATE 1% OPHT SUSP 5 ML BTL EACH EYE SCH (08:30)
[2016-08-29] MEDS: SODIUM CHLORIDE 0.9% FLUSH 10 ML FLUSH IV FLUSH SCH (08:32)
[2016-08-29] MEDS ORDERED: PANTOPRAZOLE SOD 20 MG DELAYED RELEASE TAB PO SCH (09:00)
--- NOTE | 2016-08-29 10:51 | RADHPO ---
EXAM DATE/TIME: 08/29/2016 10:10 [place] COMPARISON: No previous studies available for comparison. INDICATIONS : Cephalgia. RADIATION DOSE: 54.47 CTDIvol (mGy) MEDICAL HISTORY : Cardiovascular disease. SURGICAL HISTORY : None. ENCOUNTER: Initial ACUITY: 1 day PAIN SCALE: 4/10 LOCATION: cranial TECHNIQUE: Multiple contiguous axial images were obtained of the head. Using automated exposure control and adj ustment of the mA and/or kV according to patient size, radiation dose was kept as low as reasonably a chievable to obtain optimal diagnostic quality images. FINDINGS: CEREBRUM: The ventricles are normal for age. No evidence of midline shift, mass lesion, hemorrhage or acute in farction. No extra-axial fluid collections are seen. POSTERIOR FOSSA: The cerebellum and brainstem are intact. The 4th ventricle is midline. The cerebellopontine angle i s unremarkable. EXTRACRANIAL: The visualized portion of the orbits is intact. SKULL: The calvaria is intact. No evidence of skull fracture. CONCLUSION: Normal examination. Colleen Lisa MD on August 29, 2016 at 10:49 Board Certified Radiologist. This report was verified electronically.
[2016-08-29] MEDS ORDERED: KETO0.5S2 LEFT EYE (11:44)
[2016-08-29] MEDS ORDERED: KETO0.5S2 RIGHT EYE (11:44)
[2016-08-29] MEDS ORDERED: KETOROLAC TROMETHAMINE 0.5% OPHT SOLN 5 ML BTL LEFT EYE PRN (11:45)
[2016-08-29 12:00] VITALS: BP_SYST 118; BP_SYST 146; BP_DIAS 50; BP_DIAS 92; PULSE 86; PULSE 87; RESP 18; TEMP 97; TEMP 98.1; O2SAT 95; O2SAT 98
[2016-08-29] MEDS ORDERED: KETOROLAC TROMETHAMINE 0.5% OPHT SOLN 5 ML BTL RIGHT EYE SCH (12:00)
--- NOTE | 2016-08-29 13:57 | PD.CONS ---
HPI Service Urology Consult Requested By Primary Care Physician Nayely Chan MD Diagnosis: History of Present Illness 61 -year-old female admitted with headache. She has history of nephrolithiasis and underwent cystoscopy with left double-J stent yesterday for a 0.9 mm stone at the left UPJ. She complains of some bladder spasms from her stent with urinary frequency. She denies any dysuria. Review of Systems Endocrine: DENIES: Abnorml menstrual pattern Eyes: DENIES: Blurred vision Ears, nose, mouth, throat: DENIES: Tinnitus Respiratory: DENIES: Apneas Gastrointestinal: DENIES: Abdominal pain Genitourinary: DENIES: Abnormal vaginal bleeding Musculoskeletal: DENIES: Joint pain Integumentary: DENIES: Abnormal pigmentation Hematologic/lymphatic: DENIES: Bruising Immunologic/allergic: DENIES: Eczema Neurologic: DENIES: Abnormal gait Past Family Social History Past Medical History Nephrolithiasis Headaches GERD Osteoarthritis Hyperlipidemia Psoriasis Past Surgical History Cystoscopy with left double-J stent insertion Cataract surgery Total knee replacement on the right Bladder surgery for incontinence Tubal ligation Cholecystectomy Allergies: Coded Allergies: Sulfa (Verified Allergy, Severe, HIVES, 08/28/16) Family History Hypertension Stroke Social History Social alcohol Prior history of smoking Physical Exam Vital Signs Date Time Temp Pulse Resp B/P Pulse Ox O2 Delivery O2 Flow Rate FiO2 08/29/16 08:00 97.8 82 16 141/84 94 08/29/16 04:09 98.0 71 20 134/88 98 08/29/16 00:00 98.6 87 18 158/94 92 08/28/16 21:00 99.3 91 16 161/97 93 08/28/16 20:59 99.3 91 16 161/97 93 08/28/16 20:54 87 08/28/16 19:10 18 Room Air 08/28/16 19:10 98.7 94 18 143/78 95 Room Air 08/28/16 18:29 103 20 119/70 92 08/28/16 17:36 111 20 165/82 91 08/28/16 17:01 16 08/28/16 16:57 93 Room Air 08/28/16 16:57 112 18 149/84 92 Room Air 08/28/16 15:45 100.2 121 17 142/101 94 Physical Exam GENERAL: This is a well-nourished, well-developed patient, in no apparent distress. SKIN: No rashes, ecchymoses or lesions. Cool and dry. HEAD: Atraumatic. Normocephalic. No temporal or scalp tenderness. EYES: Pupils equal round and reactive. Extraocular motions intact. No scleral icterus. No injection or drainage. ENT: Nose without bleeding, purulent drainage or septal hematoma. Throat without erythema, tonsillar hypertrophy or exudate. Uvula midline. Airway patent. NECK: Trachea midline. No JVD or lymphadenopathy. Supple, nontender, no meningeal signs. CARDIOVASCULAR: Regular rate and rhythm without murmurs, gallops, or rubs. RESPIRATORY: Clear to auscultation. Breath sounds equal bilaterally. No wheezes , rales, or rhonchi. GASTROINTESTINAL: Abdomen soft, non-tender, nondistended. No hepato-splenomegaly , or palpable masses. No guarding. GENITOURINARY: Normal female external genitalia MUSCULOSKELETAL: Extremities without clubbing, cyanosis, or edema. No joint tenderness, effusion, or edema noted. No calf tenderness. Negative Homans sign bilaterally. NEUROLOGICAL: Awake and alert. Cranial nerves II through XII intact. Motor and sensory grossly within normal limits. Five out of 5 muscle strength in all muscle groups. Normal speech. Laboratory Tests Test 08/28/16 08/28/16 08/29/16 16:30 17:45 06:40 White Blood Count 7.3 6.0 Red Blood Count 4.72 4.24 Hemoglobin 13.3 12.3 Hematocrit 40.3 36.8 Mean Corpuscular Volume 85.4 86.7 Mean Corpuscular Hemoglobin 28.1 28.9 Mean Corpuscular Hemoglobin 33.0 33.3 Concent Red Cell Distribution Width 13.1 13.0 Platelet Count 209 166 Mean Platelet Volume 8.0 8.7 Neutrophils (%) (Auto) 77.2 58.5 Lymphocytes (%) (Auto) 11.8 24.2 Monocytes (%) (Auto) 7.7 12.3 Eosinophils (%) (Auto) 1.5 4.4 Basophils (%) (Auto) 1.8 0.6 Neutrophils # (Auto) 5.6 3.5 Lymphocytes # (Auto) 0.9 1.5 Monocytes # (Auto) 0.6 0.7 Eosinophils # (Auto) 0.1 0.3 Basophils # (Auto) 0.1 0.0 CBC Comment DIFF FINAL DIFF FINAL Differential Comment Urine Collection Type CLEAN CATCH Urine Color YELLOW Urine Turbidity SLIGHT Urine pH 6.0 Urine Specific [place] 1.007 Urine Protein 100 Urine Glucose (UA) NEG Urine Ketones NEG Urine Occult Blood LARGE Urine Nitrite POS Urine Bilirubin NEG Urine Leukocyte Esterase MOD Urine RBC INNUM Urine WBC 25-49 Urine Squamous Epithelial 0-5 Cells Microscopic Urinalysis Comment CULTURE INDICATED Urine Collection Time 16:30 Sodium Level 140 142 Potassium Level 3.9 3.3 Chloride Level 107 106 Carbon Dioxide Level 25.4 28.1 Anion Gap 8 8 Blood Urea Nitrogen 9 9 Creatinine 0.94 0.80 Estimat Glomerular Filtration 60 72 Rate Random Glucose 108 97 Calcium Level 8.7 8.5 Total Bilirubin 1.0 1.0 Aspartate Amino Transf 58 60 (AST/SGOT) Alanine Aminotransferase 54 62 (ALT/SGPT) Alkaline Phosphatase 121 115 Total Protein 7.2 6.2 Albumin 3.2 2.8 Lactic Acid Level 0.6 Date/Time Procedure Status Source Growth 08/28/16 17:45 Aerobic Blood Culture - Preliminary Resulted Blood Peripheral NO GROWTH IN 1 DAY 08/28/16 17:45 Anaerobic Blood Culture - Preliminary Resulted Blood Peripheral NO GROWTH IN 1 DAY 08/28/16 16:30 Urine Culture - Preliminary Resulted Urine Clean Catch NO GROWTH IN 24 HOURS. Result Diagram: 08/29/16 0640 08/29/16 0640 Imaging Last Impressions Head CT 08/29/16 0000 Signed Impressions: Service Date/Time: Monday, August 29, 2016 10:10 - CONCLUSION: Normal examination. Colleen Lisa MD Assessment and Plan Assessment and Plan 61-year-old female with 9 mm left UPJ stone status post cystoscopy with left double-J stent insertion Ditropan for urinary frequency and bladder spasms Hold all nonsteroidal anti-inflammatory medications Patient to be scheduled for ESWL therapy in the next week. Pablito Ennis DO Aug 29, 2016 13:57
[2016-08-29] MEDS ORDERED: OXYBUTYNIN CHLORIDE 5 MG TAB PO SCH (14:00)
[2016-08-29] MEDS ORDERED: OXYB5TAB10 PO (15:49)
--- NOTE | 2016-08-29 15:53 | HHI.DCPOC ---
Discharge Care Plan Diagnosis: (1) Headache (2) Sepsis (3) UTI (urinary tract infection) (4) Renal lithiasis (5) Transaminitis Goals to Promote Your Health * To prevent worsening of your condition and complications * To maintain your health at the optimal level Directions to Meet Your Goals Take your medications as prescribed Follow your dietary instruction Follow activity as directed Keep your appointments as scheduled Take your immunizations and boosters as scheduled If your symptoms worsen call your PCP, if no PCP go to Urgent Care Center or Emergency Room Smoking is Dangerous to Your Health. Avoid second hand smoke Call the 24-hour hour crisis hotline for domestic abuse at Rachelle Ball Aug 29, 2016 15:53
[2016-08-31] MEDS ORDERED: ASPI1TAB69 PO (12:28)
[2016-08-31] MEDS ORDERED: ACET-703 PO (12:29)
[2016-09-20] MEDS ORDERED: CIPR-9 PO (15:26)
[2016-09-24] MEDS ORDERED: ASPI1TAB69 PO (07:49)
== END 2016-08-29 16:15 | disposition home or self-care (01) ==
LOC: PHED 15:27 → UNDOADMOB 17:43 → PHEDA 17:43 → PH3B 20:43 → UNDODISOB 08-29 16:15
PROVIDERS: ADMIT Family Medicine; ATTEND Family Medicine
DX: A41.9 Sepsis, unspecified organism (principal); N39.0 Urinary tract infection, site not specified; K21.9 Gastro-esophageal reflux disease without esophagitis; R74.0 Nonspecific elevation of levels of transaminase and lactic acid dehydrogenase [LDH]; G43.909 Migraine, unspecified, not intractable, without status migrainosus; N20.0 Calculus of kidney; E78.5 Hyperlipidemia, unspecified; L40.9 Psoriasis, unspecified; E78.00 Pure hypercholesterolemia, unspecified; Z98.42 Cataract extraction status, left eye; Z98.41 Cataract extraction status, right eye; Z87.891 Personal history of nicotine dependence; Z79.82 Long term (current) use of aspirin; Z96.651 Presence of right artificial knee joint
CPT/HCPCS: 70450; 80053; 81001; 83605; 85025; 87040; 87086; 96361; 96374; 96375; 99285; G0378; J1170; J2405; J2543; J3480; J7030

== ENCOUNTER → 2016-09-01 | Day surgery (SDC) | payer BC ==
[~2016-09-01] VITALS: Ht 165.1 cm; Wt 103.7 kg
[~2016-09-01] MED LIST changes: +ACET-703 PO; +ACETAMINOPHEN/HYDROcodone 325 MG/5 MG TAB PO PRN; +CIPR-9 PO; -CIPR500T2 PO; +DO NOT ADM ANY ANTICOAGULANT DRUGS PRN; -HYDR-3533 PO; +INSULIN HUMAN REGULAR 1,000 UNITS/10 ML VIAL SQ PRN; -KETO0.5S2 EACH EYE; +KETO0.5S2 LEFT EYE; +LACTATED RINGER'S 1000 ML IV SCH; +METOPROLOL TARTRATE 25 MG TAB PO PRN; +MIDAZOLAM HCL 2 MG/2 ML VIAL ONE; +MORPHINE SULFATE 4 MG/ML INJ IV PRN; -NAPR500 PO; +ONDANSETRON HCL 4 MG/2 ML VIAL IV PUSH PRN; +OXYB5TAB10 PO; +PROPOFOL 200 MG/20 ML AMP IV ONE; +SODIUM CHLORID 0.9% 500 ML IV SCH; +SODIUM CHLORIDE 0.9% INJ 100 ML ONE; +TRAM50TA PO; -ZOFR4TAB3 SL; +ceFAZolin 1,000 MG/NS 100 ML IV SCH; +ceFAZolin INJ 1,000 MG VIAL ONE; +fentaNYL CITRATE 250 MCG/5 ML AMP ONE
--- NOTE | 2016-09-01 08:27 | RADRPT ---
EXAM DATE/TIME: 09/01/2016 07:40 [facility] COMPARISON: No previous studies available for comparison. INDICATIONS : Pre-op Lithotripsy, left kidney stone. MEDICAL HISTORY : Renal calculi. Gastroesophageal reflux disease. Cardiovascular disease SURGICAL HISTORY : Hysterectomy. Tubal ligation. ENCOUNTER: Initial ACUITY: 1 day PAIN SCORE: 5/10 LOCATION: Left Abdomen. FINDINGS: The bowel gas pattern appears normal. No free air is identified. No organomegaly is evident. There ar e surgical clips in the right upper quadrant compatible with prior cholecystectomy. A double-J stent is present on the left in the expected position. There are calcifications in the pelvis consistent w ith phleboliths. There is a 7 mm stone inferior and lateral to the stent CONCLUSION: 1. 7 mm left renal stone as above Pito Jerez MD on September 01, 2016 at 8:25 Board Certified Radiologist. This report was verified electronically.
[2016-09-01 08:33] VITALS: BP 136/75; PULSE 92; RESP 22; TEMP 97.5; O2SAT 94
--- NOTE | 2016-09-01 14:56 | PD.OP ---
Operative Report Date of Surgery: Sep 01, 2016 Preoperative Diagnosis: 9 mm left renal calculus Postoperative Diagnosis: Same Procedure: Left ESWL Anesthesia: General LMA Surgeon: Pablito Ennis Graduation Coach(s): None Resident Surgeon: None Operation and Findings: This is a 61-year-old female who presented to [place] last week with left- sided flank pain. CT scan revealed a 9 mm left UPJ stone with left hydronephrosis. Patient underwent cystoscopy left double-J stent insertion and today she is here to undergo left extra corporeal shockwave lithotripsy to treat her stone. Risk and benefits were discussed preoperatively and she is willing to proceed. Patient is brought to the operating room and identified myself as Sharyn Michaels. She was placed in supine position on the operating table, received preprocedure antibiotics, and general LMA anesthesia was administered. Under fluoroscopic imaging guidance the stone was visualized in the left midpole of the kidney. ESWL therapy commenced and patient received a total 2500 shocks. Fragmentation of the stone was visualized. She will follow- up in 2 weeks and obtain a KUB x-ray prior. We'll determine at that time if patient needs additional treatment for her kidney stone. Pablito Ennis DO Sep 01, 2016 14:56
[2016-09-01 16:28] VITALS: BP 138/75; PULSE 80; RESP 16; TEMP 97.8; O2SAT 94
== END | disposition home or self-care (01) ==
LOC: HSDC 07:31
PROVIDERS: ATTEND Urology
DX: N20.0 Calculus of kidney (principal); I25.10 Atherosclerotic heart disease of native coronary artery without angina pectoris; K21.9 Gastro-esophageal reflux disease without esophagitis; Z90.710 Acquired absence of both cervix and uterus
CPT/HCPCS: 00873; 50590; 74000; J0690; J2250; J3010

== ENCOUNTER 2016-09-14 08:35 | Emergency (ER) | payer BC ==
[~2016-09-14] VITALS: Ht 165.1 cm; Wt 104.0 kg
[~2016-09-14 08:35] MED LIST changes: -ACETAMINOPHEN/HYDROcodone 325 MG/5 MG TAB PO PRN; -CIPR-9 PO; -DO NOT ADM ANY ANTICOAGULANT DRUGS PRN; -INSULIN HUMAN REGULAR 1,000 UNITS/10 ML VIAL SQ PRN; -LACTATED RINGER'S 1000 ML IV SCH; -METOPROLOL TARTRATE 25 MG TAB PO PRN; -MIDAZOLAM HCL 2 MG/2 ML VIAL ONE; -MORPHINE SULFATE 4 MG/ML INJ IV PRN; -ONDANSETRON HCL 4 MG/2 ML VIAL IV PUSH PRN; -PROPOFOL 200 MG/20 ML AMP IV ONE; -SODIUM CHLORID 0.9% 500 ML IV SCH; -SODIUM CHLORIDE 0.9% INJ 100 ML ONE; -TRAM50TA PO; -ceFAZolin 1,000 MG/NS 100 ML IV SCH; -ceFAZolin INJ 1,000 MG VIAL ONE; -fentaNYL CITRATE 250 MCG/5 ML AMP ONE
[2016-09-14 08:37] VITALS: BP 118/85; PULSE 100; RESP 18; TEMP 98; O2SAT 94
[2016-09-14] MEDS ORDERED: TRAM50TA PO (09:15)
[2016-09-14] MEDS ORDERED: MORPHINE SULFATE 4 MG/ML INJ IM ONE (09:15)
[2016-09-14] MEDS ORDERED: ONDANSETRON HCL 4 MG/2 ML VIAL IM ONE (09:15)
--- NOTE | 2016-09-14 09:21 | PD ---
HPI Chief Complaint: Musculoskeletal Complaint Time Seen by Provider: 08:49 Travel History International Travel<30 days: No Contact w/Intl Traveler<30days: No Traveled to known affect area: No History of Present Illness HPI This patient complains of left knee pain. She's had pain for 3 full weeks. No injury. She reports that her doctors ordered an outpatient MRI but she has not had it done yet. There is some question of whether it can be done with her renal stent. In any event she's had no fever. She has pain with weightbearing or any movement or touching it. PFSH Past Medical History Arthritis: Yes Blood Disorders: No Heart Rhythm Problems: No Cancer: No Cardiovascular Problems: Yes (SINUS TACH.) High Cholesterol: Yes Chest Pain: No Congestive Heart Failure: No Diabetes: No Endocrine: No Gastrointestinal Disorders: Yes (REFLUX, SPASMS) GERD: Yes Genitourinary: No Hepatitis: No Hiatal Hernia: Yes (HAD ON PREVIOUS SCOPE) Hypertension: No Immune Disorder: No Implanted Vascular Access Dvce: No Kidney Stones: Yes Medical other: No Musculoskeletal: Yes (ARTHRITIS, BURSITIS) Neurologic: No Psychiatric: No Reproductive: No Respiratory: No Integumentary: Yes (PSORIASIS) Immunizations Current: Yes Thyroid Disease: No Ulcer: Yes ?: Not Menopausal: Yes Tubal Ligation: Yes Past Surgical History Abdominal Surgery: Yes (SUSHIL.) AICD: No Body Medical Devices: LEFT URETER STENT Cardiac Surgery: No Endocrine Surgery: No Eye Surgery: Yes (CATARACT BILAT.) Genitourinary Surgery: Yes (mmk, URETERAL STENT) Gynecologic Surgery: Yes (HYSTERECTOMY AND AP REPAIR,) Hysterectomy: Yes Joint Replacement: Yes (RIGHT TOT. KNEE) Neurologic Surgery: No Oral Surgery: Yes (DENTAL SX FULL UPPER EXTRACTION) Pacemaker: No Thoracic Surgery: No Other Surgery: Yes (VULVAR BIOPSY-- LICHEN SCLEROSIS) Social History Alcohol Use: Yes (1-2 per year) Tobacco Use: No (quit 2004) Substance Use: No Allergies-Medications (Allergen,Severity, Reaction): Coded Allergies: Sulfa (Verified Allergy, Severe, HIVES, 09/14/16) Reported Meds & Prescriptions Reported Meds & Active Scripts Active Tramadol (Tramadol HCl) 50 Mg Tab 50 Mg PO Q6H PRN Ditropan (Oxybutynin Chloride) 5 Mg Tab 5 Mg PO Q12HR Reported Tylenol Extra Strength (Acetaminophen) 500 Mg Tab 500 Mg PO Q6H PRN Aspirin 81 Mg Tabdr 81 Mg PO DAILY Zofran (Ondansetron HCl) 4 Mg Tab 4 Mg PO Q6HR PRN Pyridium (Phenazopyridine HCl) 100 Mg Tab 100 Mg PO BID PRN Vitamin B-12 (Cyanocobalamin) 2,500 Mcg Subl 2,500 Mcg SL DAILY Calcium 500 +D (Calcium Carbonate-Cholecalciferol) 500-400 Mg-Unit Tab 1 Tab PO DAILY Cranberry Urinary Comfort (Vitamins C & E) 1 Cap 2 Cap PO DAILY Omeprazole 20 Mg Tab 20 Mg PO DAILY Review of Systems General / Constitutional: No: Fever HENT: No: Headaches Cardiovascular: No: Chest Pain or Discomfort Respiratory: No: Cough Physical Exam Narrative SKIN: Focused skin assessment reveals no rash or ulcers. Skin is warm and dry. Palpation shows no induration or nodules. Psych: Normal mood and affect. Normal insight and judgment. Left knee: No redness or warmth or obvious effusion. She is hypersensitive to light touch in any area of the knee 360 Data Data Last Documented VS Vital Signs Date Time Temp Pulse Resp B/P Pulse Ox O2 Delivery O2 Flow Rate FiO2 09/14/16 08:37 98.0 100 18 118/85 94 Orders Ondansetron Inj (Zofran Inj) (09/14/16 09:15) Morphine Inj (Morphine Inj) (09/14/16 09:15) [facility] Medical Decision Making Medical Screen Exam Complete: Yes Emergency Medical Condition: Yes Medical Record Reviewed: Yes Differential Diagnosis Ligament injury, arthritis, neuropathic pain Narrative Course I have reviewed the patient's electronic medical record. Etiology of her pain is not clear by history or exam. She has an MRI scheduled. She also has an orthopedist locally but has not contacted them for a follow-up. I gave her injection of morphine and Zofran for symptom relief She has a walker to keep weight off the knee She should Contact her primary care physician to clarify this MRI order. I wrote her some tramadol for symptom relief and warned her about potential sedation. Diagnosis Primary Impression: Left knee pain Qualified Code: M25.562 - Chronic pain of left knee Additional Instructions: The patient was advised to follow up with their physician and return if they worsen. The patient was warned about potential sedation for the medications they will receive on prescription. Use walker, limit weightbearing on left knee Med/Other Pt SpecificInfo: Prescription(s) given Scripts Tramadol 50 Mg Tab50 Mg PO Q6H PRN (PAIN) #25 TAB Ref 0 Prov:Felton Simmons MD 09/14/16 Disposition: 01 DISCHARGE HOME Condition: Stable Felton Simmons MD Sep 14, 2016 09:21
[2016-09-20] MEDS ORDERED: CIPR-9 PO (15:26)
[2016-09-24] MEDS ORDERED: ASPI1TAB69 PO (07:49)
== END 2016-09-14 10:11 | disposition home or self-care (01) ==
LOC: PHED 08:35
DX: M25.562 Pain in left knee (principal); E78.00 Pure hypercholesterolemia, unspecified; Z87.39 Personal history of other diseases of the musculoskeletal system and connective tissue; Z86.79 Personal history of other diseases of the circulatory system; Z87.19 Personal history of other diseases of the digestive system; Z87.442 Personal history of urinary calculi; Z87.2 Personal history of diseases of the skin and subcutaneous tissue; Z87.891 Personal history of nicotine dependence
CPT/HCPCS: 96372; 99283; J2270; J2405

== ENCOUNTER 2016-09-18 08:41 | Emergency (ER) | payer BC ==
[~2016-09-18] VITALS: Ht 165.1 cm; Wt 100.0 kg
[~2016-09-18 08:41] MED LIST changes: -KETO0.5S2 LEFT EYE; -LEVA500T PO; -OMNI1SUS LEFT EYE; +TRAM50TA PO
[2016-09-18 08:43] VITALS: BP 188/100; PULSE 101; RESP 20; TEMP 98.2; O2SAT 96
[2016-09-18] MEDS ORDERED: ONDANSETRON HCL 4 MG/2 ML VIAL IVP ONE (09:15)
[2016-09-18] MEDS ORDERED: KETOROLAC TROMETHAMINE 30 MG/ML (IVP) VIAL IVP ONE (09:15)
[2016-09-18] MEDS ORDERED: MORPHINE SULFATE 4 MG/ML INJ IV ONE (09:15)
[2016-09-18] MEDS ORDERED: SODIUM CHLORIDE 0.9% FLUSH 10 ML FLUSH IVF PRN (09:15)
--- NOTE | 2016-09-18 09:23 | PD ---
HPI Chief Complaint: Flank/Kidney Pain Time Seen by Provider: 09:04 Travel History International Travel<30 days: No Contact w/Intl Traveler<30days: No Traveled to known affect area: No History of Present Illness HPI The patient was seen and examined in the presence of the nurse. She complains of left flank pain. She has continual pain since her lithotripsy but it waxes and wanes in intensity. It got worse yesterday evening. Symptoms moderately severe. No alleviating factors. Duration 2 weeks. She denies hematuria or fever or dysuria. No injury. PFSH Past Medical History Arthritis: Yes Blood Disorders: No Heart Rhythm Problems: No Cancer: No Cardiovascular Problems: Yes (ST) High Cholesterol: Yes Chest Pain: No Congestive Heart Failure: No Diabetes: No Endocrine: No Gastrointestinal Disorders: Yes GERD: Yes Genitourinary: No Hepatitis: No Hiatal Hernia: Yes Hypertension: No Immune Disorder: No Implanted Vascular Access Dvce: No Kidney Stones: Yes Musculoskeletal: Yes Neurologic: No Psychiatric: No Reproductive: No Respiratory: No Integumentary: Yes (PSORIASIS) Immunizations Current: Yes Thyroid Disease: No Ulcer: Yes Tetanus Vaccination: Unknown Influenza Vaccination: Yes ?: Not Menopausal: Yes Tubal Ligation: Yes Past Surgical History Abdominal Surgery: Yes AICD: No Body Medical Devices: LEFT URETER STENT Cardiac Surgery: No Endocrine Surgery: No Eye Surgery: Yes (CATARACT BILAT.) Genitourinary Surgery: Yes (LITHOTRIPSY LEFT KIDNEY 08/20) Gynecologic Surgery: Yes Hysterectomy: Yes Joint Replacement: Yes (RIGHT TOT. KNEE) Neurologic Surgery: No Oral Surgery: Yes (DENTAL SX FULL UPPER EXTRACTION) Pacemaker: No Thoracic Surgery: No Other Surgery: Yes (VULVAR BIOPSY- LICHEN SCLEROSIS) Social History Alcohol Use: Yes (1-2 per year) Tobacco Use: No (quit 2004) Substance Use: No Allergies-Medications (Allergen,Severity, Reaction): Coded Allergies: Sulfa (Verified Allergy, Severe, HIVES, 09/14/16) Reported Meds & Prescriptions Reported Meds & Active Scripts Active Tramadol (Tramadol HCl) 50 Mg Tab 50 Mg PO Q6H PRN Ditropan (Oxybutynin Chloride) 5 Mg Tab 5 Mg PO Q12HR Reported Tylenol Extra Strength (Acetaminophen) 500 Mg Tab 500 Mg PO Q6H PRN Aspirin 81 Mg Tabdr 81 Mg PO DAILY Zofran (Ondansetron HCl) 4 Mg Tab 4 Mg PO Q6HR PRN Pyridium (Phenazopyridine HCl) 100 Mg Tab 100 Mg PO BID PRN Vitamin B-12 (Cyanocobalamin) 2,500 Mcg Subl 2,500 Mcg SL DAILY Calcium 500 +D (Calcium Carbonate-Cholecalciferol) 500-400 Mg-Unit Tab 1 Tab PO DAILY Cranberry Urinary Comfort (Vitamins C & E) 1 Cap 2 Cap PO DAILY Omeprazole 20 Mg Tab 20 Mg PO DAILY Review of Systems General / Constitutional: No: Fever Eyes: No: Visual changes HENT: No: Headaches Cardiovascular: No: Chest Pain or Discomfort Respiratory: No: Shortness of Breath Gastrointestinal: No: Abdominal Pain Genitourinary: Positive: Flank Pain, No: Dysuria Musculoskeletal: Positive: Arthralgias, Pain Skin: No Rash Neurologic: No: Weakness Psychiatric: No: Depression Endocrine: No: Polydipsia Hematologic/Lymphatic: No: Easy Bruising Physical Exam Narrative GENERAL: Well-nourished, well-developed patient with left flank pain. SKIN: Focused skin assessment reveals no rash and nodules. Skin is Warm and dry. HEAD: Atraumatic. Normocephalic. EYES: Pupils equal and round. No scleral icterus. No injection or drainage. ENT: No nasal bleeding or discharge. Mucous membranes pink and moist. NECK: Trachea midline. No JVD. CARDIOVASCULAR: Regular rate and rhythm. No murmur appreciated. RESPIRATORY: No accessory muscle use. Clear to auscultation. Breath sounds equal bilaterally. GASTROINTESTINAL: Abdomen soft, non-tender, nondistended. Hepatic and splenic margins not palpable. MUSCULOSKELETAL: No obvious deformities. No clubbing. No cyanosis. No edema. NEUROLOGICAL: Awake and alert. No obvious cranial nerve deficits. Motor grossly within normal limits. Normal speech. PSYCHIATRIC: Appropriate mood and affect; insight and judgment normal. Data Data Last Documented VS Vital Signs Date Time Temp Pulse Resp B/P Pulse Ox O2 Delivery O2 Flow Rate FiO2 09/18/16 09:57 16 09/18/16 08:43 98.2 101 188/100 96 Orders Complete Blood Count With Diff (09/18/16 09:05) Basic Metabolic Panel (Bmp) (09/18/16 09:05) Urinalysis - C+S If Indicated (09/18/16 09:05) Ct Abd/Pel W/O Iv Contrast (09/18/16 09:05) Ecg Monitoring (09/18/16 09:05) Iv Access Insert/Monitor (09/18/16 09:05) Ketorolac Inj (Toradol Inj) (09/18/16 09:15) Morphine Inj (Morphine Inj) (09/18/16 09:15) Ondansetron Inj (Zofran Inj) (09/18/16 09:15) Sodium Chloride 0.9% Flush (Ns Flush) (09/18/16 09:15) Urine Culture (09/18/16 09:00) Labs Laboratory Tests Test 09/18/16 09:00 White Blood Count 11.5 TH/MM3 Red Blood Count 4.95 MIL/MM3 Hemoglobin 14.5 GM/DL Hematocrit 41.3 % Mean Corpuscular Volume 83.5 FL Mean Corpuscular Hemoglobin 29.3 PG Mean Corpuscular Hemoglobin 35.1 % Concent Red Cell Distribution Width 13.2 % Platelet Count 314 TH/MM3 Mean Platelet Volume 8.9 FL Neutrophils (%) (Auto) 69.9 % Lymphocytes (%) (Auto) 20.5 % Monocytes (%) (Auto) 6.9 % Eosinophils (%) (Auto) 2.0 % Basophils (%) (Auto) 0.7 % Neutrophils # (Auto) 8.0 TH/MM3 Lymphocytes # (Auto) 2.3 TH/MM3 Monocytes # (Auto) 0.8 TH/MM3 Eosinophils # (Auto) 0.2 TH/MM3 Basophils # (Auto) 0.1 TH/MM3 CBC Comment DIFF FINAL Differential Comment Urine Color RED Urine Turbidity HAZY Urine pH 6.0 Urine Specific [place] 1.019 Urine Protein 100 mg/dL Urine Glucose (UA) NEG mg/dL Urine Ketones NEG mg/dL Urine Occult Blood LARGE Urine Nitrite NEG Urine Bilirubin NEG Urine Urobilinogen LESS THAN 2.0 MG/DL Urine Leukocyte Esterase LARGE Urine RBC /hpf Urine WBC 112 /hpf Urine Transitional Epithelial 1 /hpf Cells Urine Bacteria MOD /hpf Urine Mucus FEW /lpf Microscopic Urinalysis Comment CULTURE INDICATED Sodium Level 137 MEQ/L Potassium Level 4.1 MEQ/L Chloride Level 104 MEQ/L Carbon Dioxide Level 23.3 MEQ/L Anion Gap 10 MEQ/L Blood Urea Nitrogen 16 MG/DL Creatinine 1.05 MG/DL Estimat Glomerular Filtration 53 ML/MIN Rate Random Glucose 96 MG/DL Calcium Level 9.9 MG/DL MDM Medical Decision Making Medical Screen Exam Complete: Yes Emergency Medical Condition: Yes Medical Record Reviewed: Yes Differential Diagnosis Kidney stone, sciatica, pyelonephritis Narrative Course I have reviewed the patient's electronic medical record. I saw her 4 days ago for knee pain in the ER. She was here 2 weeks ago with lithotripsy IV placed I gave her IV morphine and IV Toradol and IV Zofran for symptom relief Urinalysis shows hematuria primarily, a few white cells and will be cultured CBC is normal Metabolic profile is normal CT of abdomen and pelvis shows left-sided 6 mm stone were prior there was 9 mm stone. Stent is in position She has a follow-up with her urologist in 2 days She should review these findings with him and get a plan of action. Stable for outpatient follow-up. She is more comfortable now after pain medicine Diagnosis Primary Impression: Kidney stone on left side Additional Instructions: The patient was advised to follow up with their physician and return if they worsen. Med/Other Pt SpecificInfo: Other Disposition: 01 DISCHARGE HOME Condition: Stable Felton Simmons MD Sep 18, 2016 09:23
[2016-09-18 09:38] LABS: BASOPHIL # 0.1 TH/MM3 (0-0.2); BASOPHIL % 0.7 % (0.0-2.0); EOSINOPHIL # 0.2 TH/MM3 (0-0.4); HEMATOCRIT 41.3 % (35.0-46.0); HEMO FLAGS DIFF FINAL; LYMPH % 20.5 % (9.0-44.0); LYMPHOCYTE # 2.3 TH/MM3 (1.0-4.8); MEAN CELL VOLUME 83.5 FL (80.0-100.0); MEAN CORPUSCULAR HEMOGLOBIN 29.3 PG (27.0-34.0); MEAN CORPUSCULAR HGB CONC 35.1 % (32.0-36.0); MONO % 6.9 % (0.0-8.0); NEUT % 69.9 % (16.0-70.0); PLATELET COUNT 314 TH/MM3 (150-450); RED BLOOD COUNT 4.95 MIL/MM3 (4.00-5.30); RED CELL DISTRIBUTION WIDTH 13.2 % (11.6-17.2); WHITE BLOOD COUNT 11.5 TH/MM3 (4.0-11.0)
[2016-09-18 09:40] LABS: BACTERIA, URINE MOD /hpf; BLOOD, URINE LARGE (NEG); COMMENT (UR) CULTURE INDICATED; CULTURE IF INDICATED CULTURE INDICATED; GLUCOSE,URINE NEG (NEG); KETONE, URINE NEG (NEG); MUCUS URINE FEW /lpf (OCC); NITRITE,URINE NEG (NEG); TRANSITIONAL EPI CELLS, URINE 1 /hpf
[2016-09-18 09:45] LABS: URINE COLOR RED (YELLW/STRAW)
[2016-09-18 09:57] VITALS: RESP 16
[2016-09-18 09:58] LABS: BICARBONATE 23.3 MEQ/L (21.0-32.0); POTASSIUM 4.1 MEQ/L (3.5-5.1)
--- NOTE | 2016-09-18 11:36 | RADRPT ---
EXAM DATE/TIME: 09/18/2016 11:09 [facility] COMPARISON: CT ABDOMEN & PELVIS W/O CONTRAST, August 27, 2016, 7:51. INDICATIONS : Left flank pain; recent lithotripsy and stent placement. ORAL CONTRAST: No oral contrast ingested. RADIATION DOSE: 22.45 CTDIvol (mGy) MEDICAL HISTORY : Renal calculi. Hernia, hiatal. SURGICAL HISTORY : Hysterectomy. Cholecystectomy.Lithotripsy and left stent placed-08/20/16, bladder repair. ENCOUNTER: Initial ACUITY: 1 day PAIN SCALE: 8/10 LOCATION: Left flank TECHNIQUE: Volumetric scanning of the abdomen and pelvis was performed. Using automated exposure control and ad justment of the mA and/or kV according to patient size, radiation dose was kept as low as reasonably achievable to obtain optimal diagnostic quality images. FINDINGS: CT Abdomen: The spleen, pancreas, adrenals are unremarkable. Double J stent is present on the left si de with proximal tip overlapping the kidney and distal tip overlapping the bladder. No definite calci fied stones are identified adjacent to the stent. There is a hydronephrosis in the left kidney. There is and approximate 6 mm stone in the left kidney which was probably the previously seen left UPJ sto ne which has migrated backwards into the left lower pole calyx, however appears smaller. The tiny rig ht renal stone has not changed. The liver is questionably slightly fatty without focal lesions or adrian hnique. There is no evidence for any appreciable pathological adenopathy, free fluid, or bowel obstru ction. There is evidence for prior cholecystectomy. Slight degree of somewhat linear irregular opacit y is seen in the right lung base mostly consistent with scarring. CT pelvis: There is no evidence for mass, abscess formation, or any significant adenopathy within the pelvis. There are scattered diverticuli mainly in the sigmoid colon without definite signs of divert iculitis. CONCLUSION: Placement of double-J stent on the left and the previously seen left UPJ stone has mi grated into the left lower pole calyx and appears smaller based on today's measurement. Edu Osullivan MD on September 18, 2016 at 11:28 Board Certified Radiologist. This report was verified electronically.
[2016-09-20] MEDS ORDERED: CIPR-9 PO (15:26)
[2016-09-24] MEDS ORDERED: ASPI1TAB69 PO (07:49)
== END 2016-09-18 13:42 | disposition home or self-care (01) ==
LOC: NEPC 08:41
DX: N20.0 Calculus of kidney (principal); E78.00 Pure hypercholesterolemia, unspecified; Z87.39 Personal history of other diseases of the musculoskeletal system and connective tissue; Z86.79 Personal history of other diseases of the circulatory system; Z87.19 Personal history of other diseases of the digestive system; Z87.448 Personal history of other diseases of urinary system; Z87.2 Personal history of diseases of the skin and subcutaneous tissue; Z87.891 Personal history of nicotine dependence
CPT/HCPCS: 74176; 80048; 81001; 85025; 87086; 96374; 96375; 99284; J1885; J2270; J2405

== ENCOUNTER → 2016-09-24 | Day surgery (SDC) | payer BC ==
[~2016-09-24] VITALS: Ht 165.1 cm; Wt 100.2 kg
[~2016-09-24] MED LIST changes: +*morphine SULFATE 8 MG/ML PERIprocedure ONLY ONE; +ACETAMINOPHEN 1000 MG/100 ML VIAL IV ONE; +AMPICILLIN 1 GM/NS 100 ML IV ONE; +BELLADONNA ALKALOIDS/OPIUM 60 MG SUPP RECTAL ONE; +CHLORHEXIDINE GLUCONATE 2 % 1 PACK (2 CLOTHS) TOPICAL PRN; +CIPR-9 PO; +DEXAMETHASONE SOD PHOS 4 MG/ML VIAL ONE; +DO NOT ADM ANY ANTICOAGULANT DRUGS PRN; +FAMOTIDINE 20 MG/2 ML VIAL ONE; +FUROSEMIDE 40 MG/4 ML VIAL ONE; +GENTAMICIN INJ 240 MG in SODIUM CHLORIDE 0.9% INJ 100 ML IV ONE; +INSULIN HUMAN REGULAR 1,000 UNITS/10 ML VIAL SQ PRN; +IOHEXOL 350 MG/ML 50 ML BTL (for Cath Lab) ONE; +LACTATED RINGER'S 1000 ML IV PRN; +METOPROLOL TARTRATE 25 MG TAB PO PRN; +MIDAZOLAM HCL 2 MG/2 ML VIAL ONE; +NEOSTIGMINE 3 MG/3 ML SYR IV ONE; +ONDANSETRON HCL 4 MG/2 ML VIAL IV PUSH ONE; +ONDANSETRON HCL 4 MG/2 ML VIAL IV PUSH PRN; -OXYB5TAB10 PO; -PHEN0.4T PO; +POVIDONE IODINE 5% (ANTISEPSIS KIT) 4 APPLICATIONS EACH NARE PRN; +PROPOFOL 200 MG/20 ML AMP IV ONE; +SODIUM CHLORID 0.9% 500 ML IV PRN; -ZOFR4TAB PO; +fentaNYL CITRATE 250 MCG/5 ML AMP ONE; +traMADol HCL 50 MG TAB PO PRN
[2016-09-24 07:49] LABS: AUTOMATED NEUTROPHIL # 4.6 TH/MM3 (1.8-7.7); BASOPHIL # 0.1 TH/MM3 (0-0.2); BASOPHIL % 0.9 % (0.0-2.0); EOSINOPHIL # 0.6 TH/MM3 (0-0.4); EOSINOPHIL % 8.1 % (0.0-4.0); HEMATOCRIT 40.3 % (35.0-46.0); HEMO FLAGS DIFF FINAL; LYMPHOCYTE # 1.7 TH/MM3 (1.0-4.8); MEAN CELL VOLUME 83.7 FL (80.0-100.0); MEAN CORPUSCULAR HEMOGLOBIN 28.6 PG (27.0-34.0); MEAN CORPUSCULAR HGB CONC 34.2 % (32.0-36.0); MONO % 8.6 % (0.0-8.0); NEUT % 60.4 % (16.0-70.0); PLATELET COUNT 230 TH/MM3 (150-450); RED BLOOD COUNT 4.82 MIL/MM3 (4.00-5.30); RED CELL DISTRIBUTION WIDTH 13.1 % (11.6-17.2); WHITE BLOOD COUNT 7.6 TH/MM3 (4.0-11.0)
[2016-09-24 07:56] VITALS: BP 129/85; PULSE 88; RESP 20; TEMP 98.1; O2SAT 95
--- NOTE | 2016-09-24 08:42 | RADRPT ---
EXAM DATE/TIME: 09/24/2016 07:30 [facility] COMPARISON: ABDOMEN KUB ONLY, September 01, 2016, 7:40. CT ABDOMEN & PELVIS W/O CONTRAST, September 18, 2016, 11:09. INDICATIONS : Evaluate left renal calculus and ureteral stent MEDICAL HISTORY : Gastroesophageal reflux disease. Cardiovascular disease. Renal calculi. SURGICAL HISTORY : ureteral stent ENCOUNTER: Sequela ACUITY: 3 weeks PAIN SCORE: 10/10 LOCATION: Left abdomen FINDINGS: The bowel gas is nonspecific without any signs of obstruction or free air. Double J stent is present on the left side with proximal tip overlapping the kidney and distal tip overlapping the bladder. No definite calcified stones are identified adjacent to the stent. Approximate 7 mm stone is present in the left midpole kidney. CONCLUSION: No change in left renal stone. Edu Osullivan MD on September 24, 2016 at 8:39 Board Certified Radiologist. This report was verified electronically.
--- NOTE | 2016-09-24 10:23 | PD.OP ---
Operative Report Date of Surgery: Sep 24, 2016 Preoperative Diagnosis: Left ureteral and renal stones Postoperative Diagnosis: Same Procedure: Cystoscopy left ureteroscopy laser lithotripsy stone extraction with left double -J stent change Anesthesia: VIOLETTA Surgeon: Pablito Ennis Insurance Claims Analyst(s): None Resident Surgeon: None Operation and Findings: 61-year-old female status post left extraportal shockwave lithotripsy with retained left double-J stent in place. Patient elected to undergo cystoscopy left ureteroscopy laser lithotripsy stone extraction with left double-J stent change. Risk and benefits discussed and she was willing to proceed. Patient is brought to the operating room and identified by myself as Sharyn Michaels. She is placed in the dorsal lithotomy position, prepped and draped in usual sterile fashion, received preprocedure antibiotics, and general endotracheal tube anesthesia was administered. 22 Romanian cystoscope was inserted in the bladder. The left ureter stent was identified and using the alligator grasper, the stent was brought to the urethral meatus. A 0.35 sensor wire was then passed through the stent with a good curl in the kidney and the stent was removed. Attempt was made to pass a ureteral access sheath but this was unsuccessful. A few small stones were identified in the lower distal ureter and using the flexible ureteroscope and the Nitinol basket the stones were retrieved from the lower ureter. I was unable to pass a ureteral access sheath up the left ureter without difficulty. The wire was removed. A 78 mm stone was identified in the left collecting system and using the 365 laser fiber, the stone was fragmented. The Nitinol basket was then used to retrieve the stone fragments. Once the kidney was cleared decision was made then to replace the left ureter stent. The 035 sensor wire was passed through the ureteral access sheath and a ureteral access sheath was removed. The cystoscope was backloaded over the wire and a 6 Romanian 22 cm left double-J stent was placed with a good curl in the kidney and a good curl in the bladder. The string was kept in place and she'll return to the office on Tuesday to undergo stent pull in the office. She tolerated the procedure well and the stone was sent for analysis. Pablito Ennis DO Sep 24, 2016 10:23
[2016-09-24 12:14] VITALS: BP 127/72; PULSE 87; RESP 18; TEMP 97.2; O2SAT 95
== END | disposition home or self-care (01) ==
LOC: HSDC 06:47
PROVIDERS: ATTEND Urology
DX: N20.2 Calculus of kidney with calculus of ureter (principal); K21.9 Gastro-esophageal reflux disease without esophagitis
CPT/HCPCS: 00918; 52356; 74000; 82370; 85025; 88300; C1769; J0131; J0290; J1100; J1580; J1940; J2250; J2270; J2405; J2710; J3010; J7120; Q9967

== ENCOUNTER → 2017-03-21 | Outpatient (CLI) | payer BC ==
[~2017-03-21] MED LIST changes: -*morphine SULFATE 8 MG/ML PERIprocedure ONLY ONE; -ACETAMINOPHEN 1000 MG/100 ML VIAL IV ONE; -AMPICILLIN 1 GM/NS 100 ML IV ONE; +ARTH650T6 PO; +ASPI-110 PO; -BELLADONNA ALKALOIDS/OPIUM 60 MG SUPP RECTAL ONE; -CHLORHEXIDINE GLUCONATE 2 % 1 PACK (2 CLOTHS) TOPICAL PRN; -DEXAMETHASONE SOD PHOS 4 MG/ML VIAL ONE; -DO NOT ADM ANY ANTICOAGULANT DRUGS PRN; -FAMOTIDINE 20 MG/2 ML VIAL ONE; -FUROSEMIDE 40 MG/4 ML VIAL ONE; -GENTAMICIN INJ 240 MG in SODIUM CHLORIDE 0.9% INJ 100 ML IV ONE; -INSULIN HUMAN REGULAR 1,000 UNITS/10 ML VIAL SQ PRN; -IOHEXOL 350 MG/ML 50 ML BTL (for Cath Lab) ONE; -LACTATED RINGER'S 1000 ML IV PRN; -METOPROLOL TARTRATE 25 MG TAB PO PRN; -MIDAZOLAM HCL 2 MG/2 ML VIAL ONE; -NEOSTIGMINE 3 MG/3 ML SYR IV ONE; -ONDANSETRON HCL 4 MG/2 ML VIAL IV PUSH ONE; -ONDANSETRON HCL 4 MG/2 ML VIAL IV PUSH PRN; -POVIDONE IODINE 5% (ANTISEPSIS KIT) 4 APPLICATIONS EACH NARE PRN; -PROPOFOL 200 MG/20 ML AMP IV ONE; -SODIUM CHLORID 0.9% 500 ML IV PRN; -TRAM50TA PO; +VITA100021 SL; -fentaNYL CITRATE 250 MCG/5 ML AMP ONE; -traMADol HCL 50 MG TAB PO PRN
== END ==
LOC: CPRE 09:06
PROVIDERS: ATTEND Orthopaedic Surgery
DX: M17.12 Unilateral primary osteoarthritis, left knee (principal); M22.42 Chondromalacia patellae, left knee; M79.609 Pain in unspecified limb

== ENCOUNTER 2017-04-04 05:08 | Inpatient (IN) | payer BC ==
[~2017-04-04] VITALS: Ht 165.1 cm; Wt 140.8 kg
[~2017-04-04 05:08] MED LIST changes: -ACET-703 PO; -ASPI1TAB69 PO; -CYAN25003 SL
[2017-04-04] MEDS ORDERED: TRANEXAMIC ACID INJ 1,050 MG in SODIUM CHLORIDE 0.9% INJ 100 ML IV SCH ×4 (05:30)
[2017-04-04] MEDS ORDERED: METOPROLOL TARTRATE 25 MG TAB PO PRN (05:30)
[2017-04-04] MEDS ORDERED: LACTATED RINGER'S 1000 ML IV PRN (05:30)
[2017-04-04] MEDS ORDERED: INSULIN HUMAN REGULAR 1,000 UNITS/10 ML VIAL SQ PRN (05:30)
[2017-04-04] MEDS ORDERED: ceFAZolin 2 GM PREMIX 50 ML IV SCH (05:30)
[2017-04-04] MEDS ORDERED: CHLORHEXIDINE GLUCONATE 2 % 1 PACK (2 CLOTHS) TOPICAL PRN (05:30)
[2017-04-04] MEDS ORDERED: SODIUM CHLORID 0.9% 500 ML IV PRN (05:30)
[2017-04-04] MEDS ORDERED: CHLORHEXIDINE GLUCONATE 4% SOLN 120 ML BTL TOPICAL SCH (05:30)
[2017-04-04] MEDS ORDERED: POVIDONE IODINE 5% (ANTISEPSIS KIT) 4 APPLICATIONS EACH NARE PRN (05:30)
[2017-04-04] MEDS ORDERED: EXPAREL PERI-ARTICULAR INJECTION (TOTAL VOL. 100 ML) P-ARTICULR SCH ×2 (05:30)
[2017-04-04] MEDS ORDERED: GENTAMICIN SULFATE 80 MG/2 ML VIAL ONE (06:14)
[2017-04-04] MEDS ORDERED: BUPIVACAINE HCL PF 0.5% 30 ML VIAL ONE (06:49)
[2017-04-04] MEDS ORDERED: TRANEXAMIC ACID INJ 0 MG in SODIUM CHLORIDE 0.9% INJ 100 ML IV SCH (07:00)
[2017-04-04] MEDS ORDERED: Post-op Orders (for Pharmacy) MISC XX ONE (07:00)
[2017-04-04] MEDS ORDERED: ZOLPIDEM TARTRATE 5 MG TAB PO PRN (07:00)
[2017-04-04] MEDS ORDERED: MORPHINE SULFATE 4 MG/ML INJ IV PUSH PRN (07:00)
[2017-04-04] MEDS ORDERED: ONDANSETRON HCL 4 MG/2 ML VIAL IVP PRN (07:00)
[2017-04-04] MEDS ORDERED: SODIUM CHLORIDE 0.9% FLUSH 5 ML FLUSH IVF PRN (07:00)
--- NOTE | 2017-04-04 07:05 | HHI.FF ---
Face to Face Verification Diagnosis: (1) Status post total left knee replacement Physical Therapy Gait training Knee: Total knee, Protocol: Left, Gait training, Full weight bearing Left LE Weight Bearing: WB as tolerated Left LE Range of Motion: Active ROM (AROM, AAROM, PROM. ROM goal is 0 to 135 degrees.) Nursing Nursing: Dressing changes Dressing Changes: Coverderm/Primapore Additional Instructions Daily dressing changes after postop day 7. Remove steristrips on postop day 14. I have seen patient Sharyn Michaels on 04/04/17. My clinical findings support the need for the requested home health care services because: Ltd mobility - disease progression Limited ability to care for self High risk of falls I certify that my clinical findings support that this patient is homebound because: Post-op weakness Unsteady gait/balance Unsafe to leave home unassisted Ángel Barnes MD (Charles) Apr 04, 2017 07:05
[2017-04-04] MEDS ORDERED: ASPI-99 PO (07:06)
[2017-04-04] MEDS ORDERED: ACETAMINOPHEN 1000 MG/100 ML 100 ML IV ONE (07:13)
[2017-04-04] MEDS ORDERED: PROPOFOL 200 MG/20 ML AMP ONE (08:45)
[2017-04-04] MEDS: CYANOCOBALAMIN 1,000 MCG TAB PO SCH (09:00)
[2017-04-04] MEDS: PANTOPRAZOLE SOD 20 MG DELAYED RELEASE TAB PO SCH (09:00)
[2017-04-04] MEDS: SODIUM CHLORIDE 0.9% FLUSH 5 ML FLUSH IVF SCH ×2 (09:00→21:05)
[2017-04-04] MEDS: CALCIUM/VITAMIN D 250 MG/125 U TAB PO SCH (09:00)
[2017-04-04] MEDS ORDERED: NON-FORMULARY DRUG (Vitamins C & E (Cranberry Urinary Comfort) 2 CAP) PO SCH (09:00)
--- NOTE | 2017-04-04 09:10 | HHI.PR ---
Immediate Post Op Note Procedure Date: Apr 04, 2017 Pre Op Diagnosis: (1) Primary osteoarthritis of left knee Post Op Diagnosis: (1) Primary osteoarthritis of left knee Surgeon: Kevin Barnes MD Leaf Binner(s): NIKITA Samson Procedure: Left total knee arthroplasty with Marsha Triathlon prosthesis (uncemented) Findings: OA left knee Complications: none Specimen(s) removed: none Estimated blood loss: 150 ml Anesthesia: Regional Block (adductor canal), Spinal, Local (Exparel) Drains: Hemovac (2) IVF Tourniquet time (min at mmHg) 0 Patient to: PACU Patient Condition: Good Implant/Devices: SEE IMPLANT LOG (if applicable) Ángel Barnes MD (Charles) Apr 04, 2017 09:10
[2017-04-04] MEDS ORDERED: OXYC1TAB63 PO (09:24)
[2017-04-04] MEDS ORDERED: DO NOT ADM ANY ANTICOAGULANT DRUGS PRN (09:35)
[2017-04-04] MEDS ORDERED: *morphine SULFATE 8 MG/ML PERIprocedure ONLY ONE (09:49)
--- NOTE | 2017-04-04 09:53 | MP ---
cc: Ronaldo ARAGON. DATE OF SURGERY 04/04/2017 PREOPERATIVE DIAGNOSIS Primary osteoarthritis left knee. POSTOPERATIVE DIAGNOSIS Primary osteoarthritis left knee. OPERATION PERFORMED Left total knee arthroplasty with [place] Triathlon prosthesis (uncemented). SURGEON Ángel Aragon MD ANESTHESIA Spinal with additional adductor canal block and local. INDICATIONS AND FINDINGS This 62-year-old woman has had longstanding arthritis in her left knee pain which has progressively worsened over the past nine months or so. This is worse when ambulating and weightbearing and is relieved somewhat by limiting weightbearing. She can only walk a few blocks because of the pain and tends to use a cane. She has difficulty standing from a seated position and with stairs. Treatment has included nonsteroidal anti-inflammatory agentse, activity and modification, exercise, intraarticular corticosteroid, ambulatory aids and analgesics without significant improvement. Imaging studies including x-ray and MRI showed significant arthritis in the left knee with loss of articular cartilage in the medial, lateral and patellofemoral compartments with exposed bone and osteophytes. Physical findings show crepitation on range of motion with there being tenderness on range of motion. She has an antalgic gait. Operative findings are consistent with the radiographic findings with there being loss of articular cartilage in the patellofemoral joint down to significant areas of subchondral bone with osteophytes in the peripatellar area. There is also loss of articular cartilage in the medial and lateral compartments in varying degrees. PROSTHESIS USED [place] Triathlon prosthesis. The femur is an uncemented left cruciate-retaining component, size 4. The tibia is a size 4 tritanium baseplate with a 9-mm cruciate-retaining spacer of X3 polyethylene. The patella is a size 32-mm asymmetric patella, also uncemented and tritanium backed. . PROCEDURE The patient was brought to the operating room and a spinal anesthetic and adductor canal block were administered by Dr. May. The patient was then placed in supine position on the operating table with a bolster under the left hip and pneumatic tourniquet about the left thigh. The limb was prepped with alcohol, Hibiclens and Chloraprep and draped in the usual manner with the knee draped free. An appropriate time-out procedure was carried out. Local anesthesia was administered in the incision site. An incision was then made from three fingerbreadths above the superior medial pole of the patella down to the medial aspect of the tibial tubercle. The incision was deepened through the subcutaneous tissues to the retinacular structures which were exposed medially and laterally. The medial retinacular incision was made from the superior medial pole of the patella down to the tibial tubercle and up into the quadriceps tendon splitting it longitudinally in the middle one-third. The patella was reflected. The infrapatellar fat pad was debulked. Medial and lateral dissection was completed. The posterior surface of the patella was excised using the oscillating saw taking care to prevent injury to associated structures. The patella protector was applied to the posterior surface of the patella which was then slipped into the lateral gutter. Fenestrations were made in the distal end of the femur and proximal end of the tibial. The femoral cutting block was then positioned in place for a 5-degree, 8-mm cut. The cutting block was stabilized with pins. The jig was removed. The distal femoral cut was completed with the oscillating saw. The sizing guide was positioned in place. This was stabilized with pins. This was done according to Chester's line and the epicondylar axis. The size was determined. The four-in-one cutting block was positioned in place. The anterior and posterior cuts were made followed by the posterior and anterior chamfer cuts. Osteophytes were trimmed from the femur. Meniscectomies were completed. The tibial cutting guide and jig were assembled and positioned in place for appropriate rotation. The depth of cut was verified with a stylus. The cutting block was stabilized with pins. The depth of cut was verified with a stylus. The cutting block was stabilized with pins. The jig was removed. The proximal tibial cut was completed with the oscillating saw after verifying appropriate position with the spacer block. Adjustments were made as needed. The distal femur and proximal tibial fenestrations in the canal were plugged with bone graft. The tibial baseplate trial was positioned in place. A spacer was inserted. The femoral component was impacted into place. The patellar drill guide was positioned in place and drill holes made for the appropriate-sized patella. The tibial baseplate was positioned and stabilized with pins. The knee was taken through a range of motion which was easily 0 degrees extension, 135 degrees of flexion with excellent stability and appropriate tracking. The femoral drill holes were made. Femoral patellar trials were removed. Tibial spacer trials were removed. The tibial punch was impacted through its guide and removed. The tibial baseplate was removed. The tibial drill guide was positioned in place and drill holes made. Local anesthesia was administered into the posterior aspect of the capsule prior to placement of a trial prosthesis and subsequently further throughout the procedure. The cut ends of bone were cleaned with pulse lavage. The tibial baseplate was impacted into place and seated appropriately. A 9-mm spacer was inserted. The femoral component was then impacted into place and seated appropriately. The patella component was positioned in place and stabilized with the patella vice. The remainder of the local anesthetic was administered throughout the knee. Drains were brought out the superolateral aspect of the suprapatellar pouch. Wound closure then commenced using 0 Vicryl interrupted [id number] sutures for the retinacular and capsular structures, 2-0 Vicryl interrupted simple sutures with buried knots for the subcutaneous tissues and 4-0 Monocryl continuous subcuticular closure for the skin. The wound was dressed with Steri-Strips, followed by silver impregnated dressing with sterile Sof-Rol, cooling pad, further Sof-Rol and Christian bandages from the base of the toes to midthigh. The patient was transferred from the operating room to the recovery room in satisfactory condition having tolerated the procedure well. SPECIMENS None. ESTIMATED BLOOD LOSS 150 mL. MD LANG Lopez/ANNALEE /9:11 AM /9:25 AM
[2017-04-04] MEDS: KETOROLAC TROMETHAMINE 30 MG/ML (IVP) VIAL IVP SCH ×3 (10:00→21:04)
[2017-04-04] MEDS: LACTATED RINGER'S 1000 ML INJ 1,000 ML IV SCH ×2 (10:00→20:30)
--- NOTE | 2017-04-04 10:36 | RADRPT ---
EXAM DATE/TIME: 04/04/2017 09:54 [place] COMPARISON: No previous studies available for comparison. INDICATIONS : Post op. MEDICAL HISTORY : None. SURGICAL HISTORY : Orif knee replacement ENCOUNTER: Initial ACUITY: 1 day PAIN SCORE: 3/10 LOCATION: Left anterior knee FINDINGS: AP and lateral views of the knee following arthroplasty reveals a prosthesis in anatomic alignment. F racture is not appreciated. Surgical drain is evident CONCLUSION: Status post total knee arthroplasty. Everette Moon MD FACR on April 04, 2017 at 10:34 Board Certified Radiologist. This report was verified electronically.
[2017-04-04 10:50] VITALS: BP 144/62; PULSE 79; RESP 17; TEMP 96.4; O2SAT 97
[2017-04-04] MEDS: oxyCODONE/ACETAMINOPHEN 5 MG/325 MG TAB PO PRN ×2 (11:07→17:02)
[2017-04-04 11:37] VITALS: O2SAT 95
--- NOTE | 2017-04-04 12:32 | PD.CONS ---
[facility] By [facility] surgery. Reason for Consult Medical management. Primary Care Physician Nayely Chan MD Diagnoses: History of Present Illness Ms. Michaels is a pleasant 62-year-old female with a history of esophageal spasm, degenerative joint disease, kidney stone who underwent elective left total knee arthroplasty today 04/04/2017. Despite conservative management patient has been dealing with left knee pain progressively worsening over the last 9 months or so. Post-surgery, patient denies any chest pain, shortness of breath, fever or chills. Her pain is well-controlled. Denies any changes in bladder or bowel habits. With regards to esophageal spasm, patient follows up with an outpatient veterinary practice manager who has performed esophageal dilatation before. Currently no concerns with regards to esophageal spasm. Review of Systems Except as stated in HPI: all other systems reviewed are Neg Past Family Social History Allergies: Coded Allergies: Sulfa (Sulfonamide Antibiotics) (Verified Allergy, Severe, HIVES, 04/04/17 ) hydrocodone (Verified Allergy, Severe, Headache, 04/04/17) Past Medical History Degenerative joint disease Esophageal spasm Nephrolithiasis Past Surgical History Right knee replacement, kidney stone extraction, hysterectomy, cystectomy, later repair, cataract surgery. Reported Medications Omeprazole 20 mg daily Vitamin B12 2500 g sublingual daily Vitamin C and E Percocet 53 25 every 4 hours when necessary Aspirin 81 mg daily. Calcium 500+ D daily. Family History Mother had Alzheimer's disease. Social History Patient denies using tobacco, alcohol, illicit drugs. Physical Exam Vital Signs Vital Signs Date Time Temp Pulse Resp B/P (MAP) Pulse Ox O2 Delivery O2 Flow Rate FiO2 04/04/17 11:37 95 04/04/17 10:15 78 16 130/78 (95) 93 Room Air 04/04/17 10:00 75 17 128/78 (95) 94 Room Air 04/04/17 09:45 79 15 126/73 (90) 94 Nasal Cannula 3 04/04/17 09:34 96.2 86 15 109/65 (80) 98 Nasal Cannula 3 04/04/17 05:46 98.0 103 20 135/87 (103) 94 Physical Exam GENERAL: This is a well-nourished, well-developed patient, in no apparent distress. SKIN: No rashes, ecchymoses or lesions. Warm and dry. HEAD: Atraumatic. Normocephalic. No temporal or scalp tenderness. EYES: Pupils equal round and reactive. No injection or drainage. ENT: Nose without bleeding, purulent drainage or septal hematoma. Airway patent. NECK: Trachea midline. No lymphadenopathy. Supple, nontender, no meningeal signs. CARDIOVASCULAR: Regular rate and rhythm without murmurs, gallops, or rubs. No JVD. RESPIRATORY: Clear to auscultation. Breath sounds equal bilaterally. No wheezes , rales, or rhonchi. GASTROINTESTINAL: Abdomen soft, non-tender, nondistended. No guarding. MUSCULOSKELETAL: Extremities without clubbing, cyanosis, or edema. Status post left TKA. Able to move all toes. NEUROLOGICAL: Awake and alert. Cranial nerves II through XII intact. No focal neurological deficits. Normal speech. Imaging Last Impressions Knee X-Ray 04/04/17 0656 Signed Impressions: Service Date/Time: Tuesday, April 04, 2017 09:54 - CONCLUSION: Status post total knee arthroplasty. Everette Moon MD Assessment and Plan Problem List: (1) Primary osteoarthritis of left knee ICD Code: M17.12 - Unilateral primary osteoarthritis, left knee (2) Esophageal spasm ICD Code: K22.4 - Dyskinesia of esophagus (3) Sinus tachycardia ICD Code: R00.0 - Tachycardia, unspecified (4) Status post total left knee replacement ICD Code: Z96.652 - Presence of left artificial knee joint Assessment and Plan Ms. Michaels is a pleasant 62-year-old female with a history of degenerative joint disease, osteoarthritis, esophageal spasm who underwent elective left total knee arthroplasty on 04/04/2017. Hospitalist service was consulted for medical management. - Left knee osteoarthritis - Status post left total knee arthroplasty. - Continue Percocet, morphine, Toradol for pain. - Continue bowel regimen including Colace, milk of magnesia. - Continue aspirin 81 mg twice a day. - Continue calcium plus vitamin D, vitamin B12. - Esophageal spasm - no current concerns. - Patient follows up with an outpatient veterinary practice manager. - Discussed with patient regarding possible use of calcium channel ruthann such as verapamil or diltiazem. - Patient will discuss in future with her GI doctor. - Sinus tachycardia -currently heart rate controlled. We'll continue to monitor. - GERD - continue PPI. - Insomnia - zolpidem 5 mg by mouth daily at bedtime when necessary. Full code. Anticoagulation per orthopedic surgery. Flakita Sosa DO Apr 04, 2017 12:32 pm
[2017-04-04 16:00] VITALS: BP 111/63; PULSE 84; RESP 17; TEMP 96; O2SAT 95
[2017-04-04 20:50] VITALS: BP 118/69; PULSE 83; RESP 17; TEMP 96.5; O2SAT 96
[2017-04-05] VITALS (7 sets, daily range): BP systolic 102–141; BP diastolic 67–85; PULSE 84–107; RESP 16–17; TEMP 96.8–99; O2SAT 92–96
[2017-04-05] MEDS: KETOROLAC TROMETHAMINE 30 MG/ML (IVP) VIAL IVP SCH ×4 (04:06→20:15)
[2017-04-05] MEDS: oxyCODONE/ACETAMINOPHEN 5 MG/325 MG TAB PO PRN ×5 (06:18→22:32)
[2017-04-05 06:38] LABS: HEMATOCRIT 37.7 % (35.0-46.0); REVIEW FLAG FINAL
[2017-04-05] MEDS: SODIUM CHLORIDE 0.9% FLUSH 5 ML FLUSH IVF SCH ×2 (09:00→20:16)
[2017-04-05] MEDS: LACTATED RINGER'S 1000 ML INJ 1,000 ML IV SCH ×2 (09:00→20:16)
[2017-04-05] MEDS ORDERED: INFLUENZA VIRUS VACCINE (QUADRIVALENT) 0.5 ML SYR IM ONE (10:00)
--- NOTE | 2017-04-05 10:15 | PD.ORT.PN ---
Subjective Post Op Day #: 1 Subjective Remarks She is doing relatively well, but does have some pain. She has been OOB. Range of Motion 0 to 69 degrees. Distance Walked 14 feet, then 63 feet. Objective Vitals Vital Signs Date Time Temp Pulse Resp B/P (MAP) Pulse Ox O2 Delivery O2 Flow Rate FiO2 04/05/17 07:37 99.0 107 17 120/69 (86) 92 04/05/17 04:47 97.0 90 17 133/85 (101) 96 04/05/17 00:50 97.4 84 17 125/68 (87) 96 04/04/17 20:50 96.5 83 17 118/69 (85) 96 04/04/17 20:49 21 04/04/17 16:00 96.0 84 17 111/63 (79) 95 04/04/17 11:37 95 04/04/17 10:50 96.4 79 17 144/62 (89) 97 04/04/17 10:15 78 16 130/78 (95) 93 Room Air I/O 04/04/17 04/04/17 04/04/17 04/05/17 04/05/17 04/05/17 07:00 15:00 23:00 07:00 15:00 23:00 Intake Total 2080 ml 240 ml 340 ml Output Total 180 ml 80 ml 70 ml Balance 1900 ml 160 ml 270 ml Intake Oral 480 ml 240 ml 240 ml IV Total 1600 ml 100 ml Output Drainage Total 80 ml 80 ml 70 ml Estimated Blood Loss 100 ml # Voids 1 2 2 # Bowel Movements 0 0 0 Result Diagram: 04/05/17 0543 Imaging Last 72 hours Impressions Knee X-Ray 04/04/17 0656 Signed Impressions: Service Date/Time: Tuesday, April 04, 2017 09:54 - CONCLUSION: Status post total knee arthroplasty. Everette Moon MD Objective Remarks She is OOB in the chair. The dressing is dry and intact. The neurovascular status is intact. Motion, without analgesics, is fairly good. Assessment & Plan Ortho Post Op Day #: 1 Problem List: (1) Status post total left knee replacement ICD Codes: Z96.652 - Presence of left artificial knee joint Plan: Continue postop care and PT. Assessment and Plan Condition: Good. Orthopaedically stable. DVT prophylaxis: ASA, sequentials, TEDs. Discharge plans: Home with [facility]. Has appointment. Rx Percocet Ángel Barnes MD (Charles) Apr 05, 2017 10:15
[2017-04-05] MEDS: CYANOCOBALAMIN 1,000 MCG TAB PO SCH (10:22)
[2017-04-05] MEDS: CALCIUM/VITAMIN D 250 MG/125 U TAB PO SCH (10:22)
[2017-04-05] MEDS: PANTOPRAZOLE SOD 20 MG DELAYED RELEASE TAB PO SCH (10:23)
[2017-04-05] MEDS: ASPIRIN EC 81 MG TABEC PO SCH ×2 (10:23→20:15)
--- NOTE | 2017-04-05 11:02 | HHI.PR ---
Subjective Remarks Follow-up for left TKA. Patient is currently doing well. However earlier she said she had significant pain. She also had a temperature of 99F. No cough, shortness of breath. She does report some urinary hesitancy but no dysuria. Objective Vitals Vital Signs Date Time Temp Pulse Resp B/P (MAP) Pulse Ox O2 Delivery O2 Flow Rate FiO2 04/05/17 07:37 99.0 107 17 120/69 (86) 92 04/05/17 04:47 97.0 90 17 133/85 (101) 96 04/05/17 00:50 97.4 84 17 125/68 (87) 96 04/04/17 20:50 96.5 83 17 118/69 (85) 96 04/04/17 20:49 21 04/04/17 16:00 96.0 84 17 111/63 (79) 95 04/04/17 11:37 95 I/O 04/04/17 04/04/17 04/04/17 04/05/17 04/05/17 04/05/17 07:00 15:00 23:00 07:00 15:00 23:00 Intake Total 2080 ml 240 ml 340 ml Output Total 180 ml 80 ml 70 ml Balance 1900 ml 160 ml 270 ml Intake Oral 480 ml 240 ml 240 ml IV Total 1600 ml 100 ml Output Drainage Total 80 ml 80 ml 70 ml Estimated Blood Loss 100 ml # Voids 1 2 2 # Bowel Movements 0 0 0 Result Diagram: 04/05/17 0543 Imaging Last Impressions Knee X-Ray 04/04/17 0656 Signed Impressions: Service Date/Time: Tuesday, April 04, 2017 09:54 - CONCLUSION: Status post total knee arthroplasty. Everette Moon MD Objective Remarks GENERAL: Alert, oriented 3, NAD. SKIN: Warm and dry. HEAD: Normocephalic. EYES: No scleral icterus. No injection or drainage. NECK: Supple, trachea midline. No JVD or lymphadenopathy. CARDIOVASCULAR: Regular rate and rhythm without murmurs, gallops, or rubs. RESPIRATORY: Breath sounds equal bilaterally. No accessory muscle use. GASTROINTESTINAL: Abdomen soft, non-tender, nondistended. MUSCULOSKELETAL: No cyanosis, or edema. Status post left TKA. Able to move all toes. BACK: Nontender without obvious deformity. No CVA tenderness. Procedures Left total knee arthroplasty 04/04/2017. A/P Problem List: (1) Primary osteoarthritis of left knee ICD Code: M17.12 - Unilateral primary osteoarthritis, left knee (2) Esophageal spasm ICD Code: K22.4 - Dyskinesia of esophagus (3) Sinus tachycardia ICD Code: R00.0 - Tachycardia, unspecified (4) Status post total left knee replacement ICD Code: Z96.652 - Presence of left artificial knee joint Assessment and Plan Ms. Michaels is a pleasant 62-year-old female with a history of degenerative joint disease, osteoarthritis, esophageal spasm who underwent elective left total knee arthroplasty on 04/04/2017. Hospitalist service was consulted for medical management. - Left knee osteoarthritis - Status post left total knee arthroplasty. - Continue Percocet, morphine, Toradol for pain. - Continue bowel regimen including Colace, milk of magnesia. - Continue aspirin 81 mg twice a day. - Continue calcium plus vitamin D, vitamin B12. - Esophageal spasm - no current concerns. - Patient follows up with an outpatient vascular specialists. - Discussed with patient regarding possible use of calcium channel ruthann such as verapamil or diltiazem. - Patient will discuss in future with her GI doctor. - Sinus tachycardia -currently heart rate controlled. Earlier she had tachycardia which could have been from pain. - Urinary hesitancy - Will obtain UA. - GERD - continue PPI. - Insomnia - zolpidem 5 mg by mouth daily at bedtime when necessary. Full code. Aspirin 81mg BID per Orthopedic surgery. Flakita Sosa DO Apr 05, 2017 11:02 am
[2017-04-05 12:46] LABS: BLOOD, URINE NEG (NEG); GLUCOSE,URINE NEG (NEG); HYALINE CAST, URINE 1 /lpf (RARE); KETONE, URINE NEG (NEG); NITRITE,URINE NEG (NEG); PH, URINE 5.5 (5.0-8.5); SQUAMOUS EPITHELIAL CELL URINE <1 /hpf (0-5); URINE COLOR LIGHT-YELLOW (YELLW/STRAW)
[2017-04-05 12:47] LABS: COMMENT (UR) CULT NOT INDICATED; CULTURE IF INDICATED CULT NOT INDICATED
[2017-04-05] MEDS: MAGNESIUM HYDROXIDE SUSP 30 ML CUP PO PRN (14:04)
[2017-04-05] MEDS: DOCUSATE SODIUM 100 MG CAP PO SCH (20:15)
[2017-04-06 00:52] VITALS: BP 123/78; PULSE 99; RESP 18; TEMP 97.4; O2SAT 93
[2017-04-06] MEDS: KETOROLAC TROMETHAMINE 30 MG/ML (IVP) VIAL IVP SCH (03:56)
[2017-04-06] MEDS: oxyCODONE/ACETAMINOPHEN 5 MG/325 MG TAB PO PRN ×3 (03:57→12:50)
[2017-04-06 04:14] VITALS: BP 130/74; PULSE 97; RESP 18; TEMP 96.7; O2SAT 96
[2017-04-06 07:15] LABS: HEMATOCRIT 36.4 % (35.0-46.0); REVIEW FLAG FINAL
--- NOTE | 2017-04-06 07:29 | PD.ORT.PN ---
Subjective Post Op Day #: 2 Subjective Remarks She is doing relatively well, with somewhat less pain. She has been OOB with PT. Range of Motion 0 to 88 degrees. Distance Walked 60 feet. Objective Vitals Vital Signs Date Time Temp Pulse Resp B/P (MAP) Pulse Ox O2 Delivery O2 Flow Rate FiO2 04/06/17 04:14 96.7 97 18 130/74 (92) 96 04/06/17 00:52 97.4 99 18 123/78 (93) 93 04/05/17 19:51 97.2 84 16 102/67 (79) 95 04/05/17 15:46 98.5 84 17 141/70 (93) 95 04/05/17 11:18 95 21 04/05/17 11:12 96.8 99 17 119/82 (94) 95 04/05/17 07:37 99.0 107 17 120/69 (86) 92 I/O 04/05/17 04/05/17 04/05/17 04/06/17 04/06/17 04/06/17 07:00 15:00 23:00 07:00 15:00 23:00 Intake Total 340 ml 750 ml 360 ml 480 ml Output Total 70 ml 65 ml 20 ml 40 ml Balance 270 ml 685 ml 340 ml 440 ml Intake Oral 240 ml 750 ml 360 ml 480 ml IV Total 100 ml Output Drainage Total 70 ml 65 ml 20 ml 40 ml # Voids 2 3 3 4 # Bowel Movements 0 0 0 0 Result Diagram: 04/06/17 0646 Imaging Last 72 hours Impressions Knee X-Ray 04/04/17 0656 Signed Impressions: Service Date/Time: Tuesday, April 04, 2017 09:54 - CONCLUSION: Status post total knee arthroplasty. Everette Moon MD Objective Remarks She is resting comfortably, supine in bed in the [facility]. The dressing is dry and intact. The neurovascular status is intact. Assessment & Plan Ortho Post Op Day #: 2 Problem List: (1) Status post total left knee replacement ICD Codes: Z96.652 - Presence of left artificial knee joint Plan: Continue postop care and PT. Assessment and Plan Condition: Good. Orthopaedically stable. DVT prophylaxis: ASA, sequentials, TEDs. Discharge plans: Home with [facility]. Has appointment. Rx Percocet 5/325 Ángel Barnes MD (Charles) Apr 06, 2017 07:29
[2017-04-06 08:43] VITALS: BP 136/70; PULSE 96; RESP 17; TEMP 97.2; O2SAT 93
[2017-04-06] MEDS: MAGNESIUM HYDROXIDE SUSP 30 ML CUP PO PRN (08:44)
[2017-04-06] MEDS: CYANOCOBALAMIN 1,000 MCG TAB PO SCH (08:45)
[2017-04-06] MEDS: CALCIUM/VITAMIN D 250 MG/125 U TAB PO SCH (08:45)
[2017-04-06] MEDS: PANTOPRAZOLE SOD 20 MG DELAYED RELEASE TAB PO SCH (08:45)
[2017-04-06] MEDS: ASPIRIN EC 81 MG TABEC PO SCH (08:45)
[2017-04-06] MEDS: DOCUSATE SODIUM 100 MG CAP PO SCH (08:45)
[2017-04-06] MEDS: SODIUM CHLORIDE 0.9% FLUSH 5 ML FLUSH IVF SCH (08:48)
[2017-04-06] MEDS ORDERED: ZOFR4TAB3 SL (08:56)
--- NOTE | 2017-04-06 08:57 | HHI.PR ---
Subjective Remarks Follow-up for left TKA. Patient is currently doing well. No acute concerns. She mentioned some urinary hesitancy yesterday. UA normal. Patient also does not complain of hesitancy, dysuria today. Requests Zofran on discharge. Objective Vitals Vital Signs Date Time Temp Pulse Resp B/P (MAP) Pulse Ox O2 Delivery O2 Flow Rate FiO2 04/06/17 08:43 97.2 96 17 136/70 (92) 93 04/06/17 04:14 96.7 97 18 130/74 (92) 96 04/06/17 00:52 97.4 99 18 123/78 (93) 93 04/05/17 19:51 97.2 84 16 102/67 (79) 95 04/05/17 15:46 98.5 84 17 141/70 (93) 95 04/05/17 11:18 95 21 04/05/17 11:12 96.8 99 17 119/82 (94) 95 I/O 04/05/17 04/05/17 04/05/17 04/06/17 04/06/17 04/06/17 07:00 15:00 23:00 07:00 15:00 23:00 Intake Total 340 ml 750 ml 360 ml 480 ml Output Total 70 ml 65 ml 20 ml 40 ml Balance 270 ml 685 ml 340 ml 440 ml Intake Oral 240 ml 750 ml 360 ml 480 ml IV Total 100 ml Output Drainage Total 70 ml 65 ml 20 ml 40 ml # Voids 2 3 3 4 # Bowel Movements 0 0 0 0 Result Diagram: 04/06/17 0646 Imaging Last Impressions Knee X-Ray 04/04/17 0656 Signed Impressions: Service Date/Time: Tuesday, April 04, 2017 09:54 - CONCLUSION: Status post total knee arthroplasty. Everette Moon MD Objective Remarks GENERAL: Alert, oriented 3, NAD. SKIN: Warm and dry. HEAD: Normocephalic. EYES: No scleral icterus. No injection or drainage. NECK: Supple, trachea midline. No JVD or lymphadenopathy. CARDIOVASCULAR: Regular rate and rhythm without murmurs, gallops, or rubs. RESPIRATORY: Breath sounds equal bilaterally. No accessory muscle use. GASTROINTESTINAL: Abdomen soft, non-tender, nondistended. MUSCULOSKELETAL: No cyanosis, or edema. Status post left TKA. Able to move all toes. BACK: Nontender without obvious deformity. No CVA tenderness. Procedures Left total knee arthroplasty 04/04/2017. A/P Problem List: (1) Primary osteoarthritis of left knee ICD Code: M17.12 - Unilateral primary osteoarthritis, left knee (2) Esophageal spasm ICD Code: K22.4 - Dyskinesia of esophagus (3) Sinus tachycardia ICD Code: R00.0 - Tachycardia, unspecified (4) Status post total left knee replacement ICD Code: Z96.652 - Presence of left artificial knee joint Assessment and Plan Ms. Michaels is a pleasant 62-year-old female with a history of degenerative joint disease, osteoarthritis, esophageal spasm who underwent elective left total knee arthroplasty on 04/04/2017. Hospitalist service was consulted for medical management. - Left knee osteoarthritis - Status post left total knee arthroplasty. - Continue Percocet, morphine, Toradol for pain. - Continue bowel regimen including Colace, milk of magnesia. - Continue aspirin 81 mg twice a day. - Continue calcium plus vitamin D, vitamin B12. - Will add Zofran ODT on discharge meds. - Esophageal spasm - no current concerns. - Patient follows up with an outpatient manager contracting. - Discussed with patient regarding possible use of calcium channel ruthann such as verapamil or diltiazem. - Patient will discuss in future with her GI doctor. - Sinus tachycardia -currently heart rate controlled. Earlier she had tachycardia which could have been from pain. - Urinary hesitancy - Resolved. UA unremarkable. - GERD - continue PPI. - Insomnia - zolpidem 5 mg by mouth daily at bedtime when necessary. Full code. Aspirin 81mg BID per Orthopedic surgery. Patient will likely be discharged today. Flakita Sosa DO Apr 06, 2017 8:57 am
[2017-04-06 09:45] VITALS: O2SAT 92
[2017-04-06] MEDS ORDERED: BISACODYL 10 MG SUPP RECTAL PRN (09:45)
[2017-04-06] MEDS: LACTATED RINGER'S 1000 ML INJ 1,000 ML IV SCH (10:00)
[2017-04-06 12:00] VITALS: BP 121/74; PULSE 97; RESP 18; TEMP 96.6; O2SAT 93
== END 2017-04-06 15:51 | disposition home health service (06) | DRG 470 ==
LOC: HSDI 05:08 → N06A 10:51
PROVIDERS: ADMIT Orthopaedic Surgery; ATTEND Orthopaedic Surgery
PROC: 3E0T3BZ Introduction of Anesthetic Agent into Peripheral Nerves and Plexi, Percutaneous Approach (ICD-10-PCS; 2017-04-04)
PROC: 0SRD0JA Replacement of Left Knee Joint with Synthetic Substitute, Uncemented, Open Approach (ICD-10-PCS; principal; 2017-04-04 06:47)
DX: M17.12 Unilateral primary osteoarthritis, left knee (principal); K22.4 Dyskinesia of esophagus; R00.0 Tachycardia, unspecified; G47.00 Insomnia, unspecified; K21.9 Gastro-esophageal reflux disease without esophagitis; R39.11 Hesitancy of micturition; Z23 Encounter for immunization; Z88.2 Allergy status to sulfonamides; Z88.5 Allergy status to narcotic agent; Z96.651 Presence of right artificial knee joint
CPT/HCPCS: 73560; 81001; 85014; 85018; 86850; 86900; 86901; 90686; C9290; J0131; J0690; J1580; J1885; J2270; J2405; J7120; Q2038

== ENCOUNTER 2017-09-25 01:29 | Emergency (ER) | payer BC ==
[~2017-09-25] VITALS: Ht 165.1 cm; Wt 110.0 kg
[~2017-09-25 01:29] MED LIST changes: -ASPI-110 PO; +ASPI1TAB56 PO; -CIPR-9 PO; -OMEP20TA PO; +OMEP20TA93 PO; +OXYC1TAB63 PO; +ZOFR4TAB3 SL
[2017-09-25 01:34] VITALS: BP 169/97; PULSE 84; RESP 28; TEMP 97.1; O2SAT 97
[2017-09-25] MEDS ORDERED: ONDANSETRON HCL 4 MG/2 ML VIAL IV PUSH ONE ×2 (01:45→03:15)
[2017-09-25] MEDS ORDERED: KETOROLAC TROMETHAMINE 30 MG/ML (IVP) VIAL IV PUSH ONE (01:45)
[2017-09-25] MEDS ORDERED: SODIUM CHLORIDE 0.9% FLUSH 10 ML FLUSH IVF PRN (01:45)
[2017-09-25] MEDS ORDERED: MORPHINE SULFATE 2 MG/ML SYRINGE IV PUSH ONE ×2 (01:45→03:15)
[2017-09-25 01:52] LABS: AUTOMATED NEUTROPHIL # 5.5 TH/MM3 (1.8-7.7); BASOPHIL # 0.2 TH/MM3 (0-0.2); BASOPHIL % 1.7 % (0.0-2.0); EOSINOPHIL # 0.6 TH/MM3 (0-0.4); EOSINOPHIL % 5.3 % (0.0-4.0); HEMATOCRIT 43.5 % (35.0-46.0); HEMOGLOBIN 14.6 GM/DL (11.6-15.3); LYMPH % 38.3 % (9.0-44.0); LYMPHOCYTE # 4.5 TH/MM3 (1.0-4.8); MEAN CELL VOLUME 83.9 FL (80.0-100.0); MEAN CORPUSCULAR HEMOGLOBIN 28.3 PG (27.0-34.0); MEAN CORPUSCULAR HGB CONC 33.7 % (32.0-36.0); MEAN PLATELET VOLUME 9.1 FL (7.0-11.0); MONO % 7.6 % (0.0-8.0); MONOCYTE # 0.9 TH/MM3 (0-0.9); NEUT % 47.1 % (16.0-70.0); PLATELET COUNT 287 TH/MM3 (150-450); RED BLOOD COUNT 5.18 MIL/MM3 (4.00-5.30); RED CELL DISTRIBUTION WIDTH 13.1 % (11.6-17.2); WHITE BLOOD COUNT 11.7 TH/MM3 (4.0-11.0)
[2017-09-25] MEDS: SODIUM CHLOR 0.9% 1000 ML INJ 1,000 ML IV SCH ×2 (01:54→03:08)
[2017-09-25 02:28] LABS: BILIRUBIN, URINE NEG (NEG); BLOOD, URINE LARGE (NEG); GLUCOSE,URINE NEG (NEG); KETONE, URINE TRACE mg/dL (NEG); NITRITE,URINE NEG (NEG); URINE COLOR YELLOW (YELLW/STRAW); URINE LEUKOCYTE ESTERASE MOD (NEG)
[2017-09-25 02:30] LABS: CALCIUM 9.3 MG/DL (8.5-10.1)
[2017-09-25 02:34] LABS: CREATININE 0.95 MG/DL (0.50-1.00)
[2017-09-25 02:36] LABS: BACTERIA, URINE OCC /hpf; RBC, URINE 0-3 /hpf (0-3); SQUAMOUS EPITHELIAL CELL URINE 0-5 /hpf (0-5)
--- NOTE | 2017-09-25 02:51 | RADRPT ---
EXAM DATE/TIME: 09/25/2017 02:25 [place] COMPARISON: CT ABDOMEN & PELVIS W/O CONTRAST, September 18, 2016, 11:09. INDICATIONS : Right flank pain, prior history of renal stones ORAL CONTRAST: No oral contrast ingested. RADIATION DOSE: 21.47 CTDIvol (mGy) MEDICAL HISTORY : Cardiovascular disease. Renal calculi. SURGICAL HISTORY : Hysterectomy. Cholecystectomy. ENCOUNTER: Initial ACUITY: 1 day PAIN SCALE: 10/10 LOCATION: Right flank TECHNIQUE: Volumetric scanning of the abdomen and pelvis was performed. Using automated exposure control and ad justment of the mA and/or kV according to patient size, radiation dose was kept as low as reasonably achievable to obtain optimal diagnostic quality images. DICOM format image data is available electro nically for review and comparison. FINDINGS: LOWER LUNGS: The visualized lower lungs are clear. LIVER: Homogeneous density without lesion. There is no dilation of the biliary tree. Gallbladder surgically absent. SPLEEN: Normal size without lesion. PANCREAS: Within normal limits. KIDNEYS: There is a 4 mm stone at the right UVJ. There is mild hydronephrosis and hydroureter. Nonobstructing renal calculi involving both kidneys. The largest on the left measures 4 mm. No perinephric stranding . ADRENAL GLANDS: Within normal limits. VASCULAR: There is no aortic aneurysm. BOWEL/MESENTERY: Scattered colonic diverticula. The stomach, small bowel, and colon demonstrate no acute abnormality. There is no free intraperitoneal air or fluid. ABDOMINAL WALL: Within normal limits. RETROPERITONEUM: There is no lymphadenopathy. BLADDER: No wall thickening or mass. REPRODUCTIVE: Within normal limits. INGUINAL: There is no lymphadenopathy or hernia. MUSCULOSKELETAL: Within normal limits for patient age. CONCLUSION: 1. 4 mm stone at the right UVJ with mild hydronephrosis and hydroureter. 2. Bilateral renal calculi. 3. Prior cholecystectomy. 4. Colonic diverticulosis. Raymon Baxter Jr., MD on September 25, 2017 at 2:47 Board Certified Radiologist. This report was verified electronically.
[2017-09-25] MEDS ORDERED: TAMSULOSIN HCL 0.4 MG CAP PO ONE (03:00)
[2017-09-25] MEDS ORDERED: POTASSIUM CHLORIDE 20 MEQ CONTROLLED RELEASE TAB PO ONE (03:00)
[2017-09-25] MEDS ORDERED: cefTRIAXone INJ 1,000 MG in SODIUM CHLORIDE 0.9% INJ 100 ML IV ONE (03:00)
--- NOTE | 2017-09-25 03:12 | PD ---
HPI Chief Complaint: Flank/Kidney Pain Time Seen by Provider: 01:41 Travel History International Travel<30 days: No Contact w/Intl Traveler<30days: No Traveled to known affect area: No History of Present Illness HPI 62-year-old female presents with sudden onset right flank pain radiating to the right lower quadrant prior history of kidney stones. Patient had nausea and vomiting. No fever or chills. Patient complains of severe right flank pain. No hematemesis no coffee-ground emesis. Patient's had previous stents placed. No report of dysuria frequency urgency or hematuria. Patient has noted decreased urine output. PFSH Past Medical History Narrative Medical Sinus tachycardia morbid obesity GERD migraines dyslipidemia kidney stones renal stent; no tobacco use; nursing notes reviewed Arthritis: Yes Blood Disorders: No Heart Rhythm Problems: No Cancer: No Cardiovascular Problems: Yes (SINUS TACH) High Cholesterol: Yes Chest Pain: No Congestive Heart Failure: No Diabetes: No Diminished Hearing: No Endocrine: No Gastrointestinal Disorders: Yes (GERD, ESOPHAGEAL SPASMS) GERD: Yes Genitourinary: Yes (STONES) Hepatitis: No Hiatal Hernia: Yes Hypertension: No Immune Disorder: No Implanted Vascular Access Dvce: No Kidney Stones: Yes Musculoskeletal: Yes (DJD) Neurologic: Yes (BACK PAIN) Psychiatric: No Reproductive: No Respiratory: Yes (HX PNEUMONIA) Integumentary: Yes (PSORIASIS) Immunizations Current: Yes Migraines: Yes Thyroid Disease: No Ulcer: Yes Tetanus Vaccination: Unknown Influenza Vaccination: Yes Menopausal: Yes Tubal Ligation: Yes Past Surgical History Abdominal Surgery: Yes AICD: No Body Medical Devices: LEFT STENT URETER Cardiac Surgery: No Endocrine Surgery: No Eye Surgery: Yes (CATARACT BILAT.) Genitourinary Surgery: Yes (LITHOTRIPSY LEFT KIDNEY 08/20, STENT IN L SIDE) Gynecologic Surgery: Yes (VAG HYSTERECTOMY WITH BLADDER REPAIR, MMK BLADDER REPAIR) Hysterectomy: Yes Joint Replacement: Yes (RIGHT TOT. KNEE) Neurologic Surgery: No Oral Surgery: Yes (DENTAL SX FULL UPPER EXTRACTION) Pacemaker: No Thoracic Surgery: No Other Surgery: Yes (VULVAR BIOPSY- LICHEN SCLEROSIS) Social History Alcohol Use: Yes (1-2 per year) Tobacco Use: No (quit 2004) Substance Use: No Allergies-Medications (Allergen,Severity, Reaction): Coded Allergies: Sulfa (Sulfonamide Antibiotics) (Verified Allergy, Severe, HIVES, 09/25/17) hydrocodone (Verified Allergy, Severe, Headache, 09/25/17) Reported Meds & Prescriptions Reported Meds & Active Scripts Active Zofran Odt (Ondansetron Odt) 4 Mg Tab 4 Mg SL Q6HR PRN Adult Aspirin EC Low Strength (Aspirin) 81 Mg Tabec 81 Mg PO BID Reported Vitamin B-12 (Cyanocobalamin) 1,000 Mcg Subl 2,500 Mcg SL DAILY Arthritis Pain Reliever ER 8 HR (Acetaminophen) 650 Mg Tab 650 Mg PO Q8HR PRN Calcium 500 +D (Calcium Carbonate-Cholecalciferol) 500-400 Mg-Unit Tab 1 Tab PO DAILY Holding Cranberry Urinary Comfort (Vitamins C & E) 1 Cap 2 Cap PO DAILY Omeprazole 20 Mg Tab 20 Mg PO DAILY Review of Systems Except as stated in HPI: all other systems reviewed are Neg General / Constitutional: No: Fever, Chills HENT: No: Congestion Cardiovascular: No: Chest Pain or Discomfort Respiratory: No: Cough Gastrointestinal: Positive: Nausea, Vomiting, Abdominal Pain Genitourinary: Positive: Flank Pain, No: Dysuria Musculoskeletal: No: Myalgias, Arthralgias Skin: No Rash Neurologic: No: Weakness Psychiatric: No: Anxiety Hematologic/Lymphatic: No: Lymph Node Enlargement Physical Exam Narrative GENERAL: Well-developed obese female in obvious discomfort no respiratory distress SKIN: Warm and dry. HEAD: Normocephalic. EYES: No scleral icterus. No injection or drainage. NECK: Supple, trachea midline. No JVD or lymphadenopathy. CARDIOVASCULAR: Regular rate and rhythm without murmurs, gallops, or rubs. RESPIRATORY: Breath sounds equal bilaterally. No accessory muscle use. GASTROINTESTINAL: Abdomen soft, non-tender, nondistended. MUSCULOSKELETAL: No cyanosis, or edema. BACK: Nontender without obvious deformity.Right CVA tenderness. Data Data Last Documented VS Vital Signs Date Time Temp Pulse Resp B/P (MAP) Pulse Ox O2 Delivery O2 Flow Rate FiO2 09/25/17 01:34 97.1 84 28 169/97 (121) 97 Orders Orders Complete Blood Count With Diff (09/25/17 01:35) Basic Metabolic Panel (Bmp) (09/25/17 01:35) Urinalysis - C+S If Indicated (09/25/17 01:35) Ecg Monitoring (09/25/17 01:35) Iv Access Insert/Monitor (09/25/17 01:35) Ondansetron Inj (Zofran Inj) (09/25/17 01:45) Sodium Chloride 0.9% Flush (Ns Flush) (09/25/17 01:45) Sodium Chlor 0.9% 1000 Ml Inj (Ns 1000 M (09/25/17 01:45) Ketorolac Inj (Toradol Inj) (09/25/17 01:45) Morphine Inj (Morphine Inj) (09/25/17 01:45) Ct Abd/Pel W/O Iv Contrast (09/25/17 ) Urine Culture (09/25/17 02:20) Tamsulosin (Flomax) (09/25/17 03:00) Ceftriaxone Inj (Rocephin Inj) (09/25/17 03:00) Potassium Chloride (Kcl) (09/25/17 03:00) Sodium Chlor 0.9% 1000 Ml Inj (Ns 1000 M (09/25/17 03:15) Labs Laboratory Tests Test 09/25/17 01:40 09/25/17 02:20 White Blood Count 11.7 TH/MM3 Red Blood Count 5.18 MIL/MM3 Hemoglobin 14.6 GM/DL Hematocrit 43.5 % Mean Corpuscular Volume 83.9 FL Mean Corpuscular Hemoglobin 28.3 PG Mean Corpuscular Hemoglobin Concent 33.7 % Red Cell Distribution Width 13.1 % Platelet Count 287 TH/MM3 Mean Platelet Volume 9.1 FL Neutrophils (%) (Auto) 47.1 % Lymphocytes (%) (Auto) 38.3 % Monocytes (%) (Auto) 7.6 % Eosinophils (%) (Auto) 5.3 % Basophils (%) (Auto) 1.7 % Neutrophils # (Auto) 5.5 TH/MM3 Lymphocytes # (Auto) 4.5 TH/MM3 Monocytes # (Auto) 0.9 TH/MM3 Eosinophils # (Auto) 0.6 TH/MM3 Basophils # (Auto) 0.2 TH/MM3 CBC Comment DIFF FINAL Differential Comment Blood Urea Nitrogen 11 MG/DL Creatinine 0.95 MG/DL Random Glucose 127 MG/DL Calcium Level 9.3 MG/DL Sodium Level 141 MEQ/L Potassium Level 3.4 MEQ/L Chloride Level 108 MEQ/L Carbon Dioxide Level 25.0 MEQ/L Anion Gap 8 MEQ/L Estimat Glomerular Filtration Rate 59 ML/MIN Urine Color YELLOW Urine Turbidity CLOUDY Urine pH 6.0 Urine Specific [place] 1.025 Urine Protein 100 mg/dL Urine Glucose (UA) NEG mg/dL Urine Ketones TRACE mg/dL Urine Occult Blood LARGE Urine Nitrite NEG Urine Bilirubin NEG Urine Urobilinogen 1.0 MG/DL Urine Leukocyte Esterase MOD Urine RBC 0-3 /hpf Urine WBC 9-14 /hpf Urine Squamous Epithelial Cells 0-5 /hpf Urine Bacteria OCC /hpf Microscopic Urinalysis Comment CULTURE INDICATED MDM Medical Decision Making Medical Screen Exam Complete: Yes Emergency Medical Condition: Yes Medical Record Reviewed: Yes Interpretation(s) CBC & BMP Diagram 09/25/17 01:40 Calcium Level 9.3 Vital Signs Date Time Temp Pulse Resp B/P (MAP) Pulse Ox O2 Delivery O2 Flow Rate FiO2 09/25/17 01:34 97.1 84 28 169/97 (121) 97 Urinalysis: Positive cloudiness large blood moderate leukocyte Estrace 9-14 WBCs occasional bacteria cultures indicated CT abd/pel: CONCLUSION: 1. 4 mm stone at the right UVJ with mild hydronephrosis and hydroureter. 2. Bilateral renal calculi. 3. Prior cholecystectomy. 4. Colonic diverticulosis. Raymon Baxter Jr., MD on September 25, 2017 at 2:47 Board Certified Radiologist. This report was verified electronically. Differential Diagnosis Renal colic, obstructive uropathy, UTI, pyelonephritis, cholecystitis, pancreatitis Narrative Course IV access obtained specimens collected and sent for resulting patient administered Toradol 30 mg IV morphine 4 mg IV Zofran 4 mg IV Urinalysis positive leukocyte esterase positive WBCs positive bacteria culture indicated; patient administered Rocephin [address] abdomen pelvis consistent with mild hydronephrosis hydroureter with 4 mm stone at the right UVJ patient is afebrile total white cell count is 11,700 with mild UTI at this point time patient should be stable for outpatient management with oral antibiotic and close follow-up with her urologist Diagnosis Primary Impression: Ureterolithiasis Additional Impression: UTI (urinary tract infection) Referrals: Pablito Ennis DO call for appointment Patient Instructions: Narcotic given in the ED, General Instructions Additional Instructions: Increase fluid hydration Take antibiotic as prescribed Take medication as prescribed as needed for nausea and/or vomiting Strain urine Take ibuprofen 800 mg as often as every 8 hours as needed for pain associated with inflammation Return to the emergency department for fever pain vomiting or any concerns Follow-up with your urologist call office on Tuesday to schedule follow-up appointment Med/Other Pt SpecificInfo: Prescription(s) given Scripts Ibuprofen (Ibuprofen) 800 Mg Tab 800 MG PO Q8H Y for PAIN GREATER THAN 5, #10 TAB 0 Refills Prov: Caroline Mack MD 09/25/17 Ciprofloxacin (Cipro) 500 Mg Tab 500 MG PO BID for Infection for 7 Days, #14 TAB 0 Refills Prov: Caroline Mack MD 09/25/17 Promethazine (Phenergan) 25 Mg Tablet 25 MG PO Q6H Y for NAUSEA OR VOMITING, #10 TAB 0 Refills Prov: Caroline Mack MD 09/25/17 Tamsulosin (Flomax) 0.4 Mg Cap 0.4 MG PO HS for Manage Prostate Problems, #10 CAP 0 Refills Prov: Caroline Mack MD 09/25/17 Oxycodone-Acetaminophen (Percocet) 5-325 mg Tab 1 TAB PO Q6H Y for PAIN, #10 TAB 0 Refills Prov: Caroline Mack MD 09/25/17 Disposition: DISCHARGE HOME Condition: Stable Caroline Mack MD Sep 25, 2017 03:12
[2017-09-25] MEDS ORDERED: TAMS5CAP PO (03:15)
[2017-09-25] MEDS ORDERED: SODIUM CHLOR 0.9% 1000 ML INJ 1,000 ML IV ONE (03:15)
[2017-09-25] MEDS ORDERED: PERC5TAB12 PO (03:15)
[2017-09-25] MEDS ORDERED: PROM25TA10 PO (03:15)
[2017-09-25] MEDS ORDERED: IBUP1TAB7 PO (03:15)
[2017-09-25] MEDS ORDERED: CIPR-9 PO (03:15)
== END 2017-09-25 04:01 | disposition home or self-care (01) ==
LOC: PHED 01:29
DX: N39.0 Urinary tract infection, site not specified (principal); N13.2 Hydronephrosis with renal and ureteral calculous obstruction; K57.30 Diverticulosis of large intestine without perforation or abscess without bleeding; E66.01 Morbid (severe) obesity due to excess calories; K21.9 Gastro-esophageal reflux disease without esophagitis; E78.00 Pure hypercholesterolemia, unspecified; Z87.442 Personal history of urinary calculi; Z79.899 Other long term (current) drug therapy; Z88.2 Allergy status to sulfonamides
CPT/HCPCS: 74176; 80048; 81001; 85025; 87086; 96365; 96375; 96376; 99284; J0696; J1885; J2270; J2405; J7030